=== PATIENT | male | born 1950 | race Caucasian/White ===

== ENCOUNTER → 2019-10-21 | Outpatient (CLI) | payer MEDICARE ==
--- NOTE | 2019-10-21 11:55 | MR ---
EXAMINATION TYPE: MR shoulder RT wo con DATE OF EXAM: 10/21/2019 COMPARISON: Right shoulder x-ray October 06, 2019 HISTORY: Right shoulder pain per order. Pain X 3 years, decreased ROM with difficulty raising overhea d per patient. TECHNIQUE: Multiplanar, multisequence imaging of the right shoulder is performed without contrast. FINDINGS: Rotator Cuff: Complete full-thickness retracted tear of the supraspinatus tendon to the level of the acromioclavicular joint coronal image 13 . Near-complete full-thickness retracted tear of the infrasp inatus tendon coronal image 17 less than 1 cm from attachment. A few fibers remain present. Intact goncalves bscapularis tendon. Rotator cuff muscle bulk fairly well maintained. Acromioclavicular Joint: Moderate to severe narrowing and capsular hypertrophy with loss of underlyin g fat plane. Mild spurring. Glenohumeral Joint: Moderate to large joint effusion. [id number] narrowing. No significant spur ring. Labrum: The superior labrum shows some increased signal consistent with degenerative tear coronal ted ge 13. Biceps Tendon: The long head of biceps is in normal location within bicipital groove. Bone marrow signal: Overall heterogeneity. No suspicious edema. Other: No additional significant abnormality is appreciated. IMPRESSION: Full-thickness retracted tear of the supraspinatus tendon. Near full-thickness retracted tear of the infraspinatus tendon.
== END | disposition home or self-care (01) ==
LOC: RADMRIMAIN 11:10
PROVIDERS: ATTEND Orthopaedic Surgery
DX: M75.121 Complete rotator cuff tear or rupture of right shoulder, not specified as traumatic (principal)

== ENCOUNTER → 2019-12-29 | Outpatient (CLI) | payer MEDICARE ==
[2019-12-29 08:28] VITALS: BP 157/89; PULSE 63; RESP 16; TEMP 98.1
--- NOTE | 2019-12-29 08:43 | P.PAINCN ---
History of Present Illness - Reason for Consult Consult date: 12/29/19 - History of Present Illness This is a 69-year-old patient referred by a neurologist at [place] with a chief complaint of chronic pain in the low back and pain from the knees down to the feet. These of the pain started 10-15 years ago. There was no inciting incident. Overall he has no back pain and his pain is worse from his knees all the way to his feet circumferentially. The pain is described as stabbing and at times feels hot and cold at the same time. He says his legs feel very heavy and sometimes he has difficulty raising his legs. He does say in general he does not have much weakness. The only alleviating factors currently are his pramiprexole which he takes for restless leg syndrome. As rating factors or any form of physical activity. Pain is worse in the evening. Currently pain is 2 out of 10, at worse 8 out of 10, at its best 2 out of 10. In terms of management, patient has attempted gabapentin 300 mg 1-2x a day and motrin 800 mg TID. He had a laminectomy in June of [address] Burks which did help him his back pain but not his leg pain He is unsure what levels this was done. He also had ankle brachial index and tests done in his bilateral lower extremities which were normal. He has mentioned that he had injections in the past which sound like epidurals possibly radiofrequency ablations of the facet joints. He said these procedures were helpful specifically the epidurals, even noted that a shoulder injection in the past help with his leg pain. He does mention that he had bad reactions to Versed and fentanyl in the past and he would be doing the injections without receiving any sedation Patient denies adverse drug effects from medications. Patient also denies new- onset weakness, bowel/bladder incontinence, or any other signs or symptoms of cauda equina syndrome. There are no signs of acute intoxication, and no indications of medication diversion or overuse. In addition to above, 13-point review of systems is also negative for chest pain, shortness of breath, changes in vision, changes in hearing, new onset weakness, abdominal pain, diarrhea, extreme fatigue, malaise, fever, skin changes, homicidal or suicidal ideation, or bowel or bladder incontinence. Physical exam: Vital Signs: Reviewed in EMR GENERAL: Well appearing, in no acute distress PSYCH: Mood and affect is appropriate. Awake, alert, and oriented SKIN: Skin color, texture, turgor normal, no rashes or lesions HEENT: Normocephalic, atraumatic. EOM intact CV: No pedal edema RESP: Respirations are unlabored, no audible wheezing GI: Abdomen non-distended MUSCULOSKELETAL: Bilateral upper and lower extremity strength is normal and symmetric. No atrophy or tone abnormalities are noted. Lumbar spine: Straight leg raising in the sitting position is negative for radicular pain. No pain to palpation over the lumbar spine and paraspinous muscles. Negative for pain with facet loading and back extension/rotation. Normal range of motion without pain reproduction Buttocks: No pain to palpation over the PSIS, Alonzo test is negative Extremities: Peripheral joint ROM is full and pain free without obvious instability or laxity in all four extremities. No edema or skin discolorations noted. Gait: Gait is normal NEUR: Bilateral upper and lower extremity coordination and muscle stretch reflexes are physiologic and symmetric. Negative clonus. No loss of sensation is noted. Cranial nerves are grossly intact. Imaging: Shoulder MRI 10/2019 Full-thickness retracted tear of the supraspinatus tendon. Near full-thickness retracted tear of the infraspinatus tendon. Acromial clavicular joint: Moderate to severe narrowing and capsular hypertrophy with loss of underlying fat plane. Glenohumeral joint: Moderate to large joint effusion. No significant spurring. Labrum: Superior labrum shows some increased signal consistent with degenerative tear. Lumbar MRI T12 to L3: Mild bilateral neural foraminal and central canal encroachment from spondylosis and epidural pole lipomatosis mainly. L3-L4: Moderate bilateral neural foraminal and relatively mild central canal encroachment from a circumferential disc spur complex and hypertrophic facet arthropathy L4-L5: Severe bilateral neural foraminal and central canal encroachment from a circumferential disc spur complex with a central component, ligamentum flavum thickening, and hypertrophic facet arthropathy. L5-S1: Moderate bilateral neural foraminal and central canal encroachment from spondylosis. Assessment: 1. Bilateral lower extremity neuropathy Plan: 1. Explanation: Diagnoses, prognoses, and multiple treatment options including but not limited to physical therapy, interventional therapies, medication management and surgery were discussed with the patient and all questions were answered to the patient's satisfaction. 2. Investigations: This point I am not sure if his pain is coming from isolated nerve pain in his lower extremities versus his back. Order a lumbar MRI without contrast as well as an EMG of the bilateral lower extremities to assess if his pain in his legs is coming from his back versus peripheral neuropathy versus restless leg syndrome 3. Counseling: The patient was counseled for 3 minutes on SMOKING CESSATION, BODY MASS INDEX, EXERCISE. Specifically, the patient was instructed regarding the importance of smoking cessation, weight control, and exercise in the context of both chronic pain and overall health. 4. Procedures: Consider epidurals in the future. Would only consider after reviewing MRI and EMG 5. Consultations: None 6. Medications: Can uptitrate his gabapentin in the future if imaging does not show an injection target. He does mention he is on higher doses in the past and this made him feel very mentally clouded, however does not sound like he was up titrated appropriately and was given medication 3 times a day 7. Disposition: After MRI and EMG to discuss possible injection versus medication management Past Medical History Past Medical History: Cancer, Osteoarthritis (OA), Sleep Apnea/CPAP/BIPAP, Thyroid Disorder Additional Past Medical History / Comment(s): burning & pain in legs, uses CPAP, hx. prostate cancer 2007, restless leg syndrome-causes issues when first gets up, trips alot until "legs get going" History of Any Multi-Drug Resistant Organisms: None Reported Past Surgical History: Back Surgery, Prostate Surgery Additional Past Surgical History / Comment(s): prostatectomy Past Anesthesia/Blood Transfusion Reactions: No Reported Reaction Smoking Status: Never smoker Medications and Allergies Home Medications Medication Instructions Recorded Confirmed Type Gabapentin [Neurontin] 300 mg PO HS 12/25/19 12/25/19 History Levothyroxine Sodium [Synthroid] 150 mcg PO DAILY 12/25/19 12/25/19 History Loratadine [Claritin] 10 mg PO DAILY 12/25/19 12/25/19 History Pramipexole [Mirapex] 0.5 mg PO TID PRN 12/25/19 12/25/19 History Allergies Allergy/AdvReac Type Severity Reaction Status Date / Time Penicillins Allergy Unknown Verified 12/25/19 09:19 Childhood fentanyl AdvReac BP & heart Verified 12/25/19 09:19 rate dropped PQRS Measure Charge Sheet PQRS Narrative: Pain Intensity [Bilateral 5 Lower Leg] Scale Used Numeric (1 - 10) Home Medications: Ambulatory Orders Gabapentin [Neurontin] 300 mg PO HS 12/25/19 Levothyroxine Sodium [Synthroid] 150 mcg PO DAILY 12/25/19 Loratadine [Claritin] 10 mg PO DAILY 12/25/19 Pramipexole [Mirapex] 0.5 mg PO TID PRN 12/25/19
== END | disposition home or self-care (01) ==
LOC: PNWHC3 07:41
PROVIDERS: ATTEND Anesthesiology
DX: G62.9 Polyneuropathy, unspecified (principal); G47.33 Obstructive sleep apnea (adult) (pediatric); M19.90 Unspecified osteoarthritis, unspecified site; E07.9 Disorder of thyroid, unspecified; Z99.89 Dependence on other enabling machines and devices; Z79.899 Other long term (current) drug therapy; Z79.890 Hormone replacement therapy; Z88.0 Allergy status to penicillin; Z88.5 Allergy status to narcotic agent
CPT/HCPCS: 99211

== ENCOUNTER → 2020-01-21 | Outpatient (CLI) | payer MEDICARE ==
--- NOTE | 2020-01-21 16:35 | MR ---
EXAMINATION TYPE: MR lumbar spine wo/w con DATE OF EXAM: 01/21/2020 COMPARISON: NONE HISTORY: 69-year-old male G57.90 Low back pain into lower extremities Technique: Multiplanar, multisequence images of the lumbar spine were obtained before and after admin istration of 11 mL intravenous Gadavist gadolinium contrast. FINDINGS: L4 and L5 laminectomy change. Corresponding susceptibility artifact in the posterior midline soft tis sues. There is enhancing granulation tissue within the laminectomy bed. No abnormal enhancement seen extending into the spinal canal. Vertebral body heights are preserved. Degenerative grade 1 anterolisthesis at L4-L5. Mild to moderate multilevel degenerative disc disease with desiccated and bulging discs. Enhancing annular fissure present posteriorly at L4-L5. Additional intraforaminal annular fissure on the right at L5-S1. Advanced hypertrophic facet arthropathy throughout. Conus medullaris is normal. Multiple parapelvic cysts within the kidneys. Heterogeneous marrow signal without suspicious bone marrow placement. The T12-L1, diffuse disc bulge with prominent dorsal epidural fat and facet arthropathy. There is mil d spinal canal stenosis with minimal inferior foraminal narrowing on both sides. At L1-L2, diffuse disc bulge with ligamentum flavum thickening and prominent dorsal epidural fat. Add itional facet arthropathy. Changes result in mild spinal canal stenosis. Additional moderate left and mild right neuroforaminal stenosis. At L2-L3, diffuse disc bulge with ligamentum flavum thickening and facet arthropathy. Prominent dorsa l epidural fat. Minimal narrowing of the spinal canal. Mild to moderate bilateral neural foraminal st enosis. At L3-L4, diffuse disc bulge with hypertrophic facet arthropathy. No significant spinal canal stenosi s. There is moderate right greater than left neuroforaminal stenosis. At L4-L5, diffuse disc bulge with posterior annular fissure. Hypertrophic facet arthropathy with grad e 1 anterolisthesis. There is laminectomy with dorsal decompression of the spinal canal. Disc materia l closely approaches and may abut the bilateral traversing L5 nerve roots. In addition, there is mode rate to severe bilateral neural foraminal stenosis. At L5-S1, diffuse disc bulge with hypertrophic facet arthropathy. No spinal canal stenosis. There is moderate bilateral neural foraminal stenosis. There seems to be a right intraforaminal annular fissur e at this level and there may be abutment of the exiting right L5 nerve root. IMPRESSION: 1. Prior L4 and L5 laminectomy change. There is surgical signal artifact along with enhancing granula tion tissue within the laminectomy bed. No suspicious epidural or perineural enhancement seen. 2. Mild to moderate multilevel degenerative disc disease. Multilevel hypertrophic facet arthropathy a nd ligamentum flavum thickening. Some levels of prominent dorsal epidural fat in the upper lumbar spi ne. Degenerative grade 1 anterolisthesis at L4-L5. 3. Changes result in mild overall narrowing of the spinal canal at T12-L1 and L1-L2. Minimal narrowin g at L2-L3. No jair canal compromise. 4. Posterior bulging disc at L4-L5 contains an annular fissure. Disc material closely approaches and may abut the bilateral traversing L5 nerve roots here. Moderate to severe bilateral neuroforaminal st enosis at this level. 5. Moderate bilateral neuroforaminal stenosis at L5-S1. In addition, there is a right intraforaminal annular fissure at this level that may abut the exiting right L5 nerve root. 6. Additional variable neuroforaminal stenoses as outlined above.
== END | disposition home or self-care (01) ==
LOC: RADMRIMAIN 07:34
PROVIDERS: ATTEND Anesthesiology
DX: M48.061 Spinal stenosis, lumbar region without neurogenic claudication (principal); M51.36 Other intervertebral disc degeneration, lumbar region; M51.26 Other intervertebral disc displacement, lumbar region; M43.16 Spondylolisthesis, lumbar region; Z98.1 Arthrodesis status
CPT/HCPCS: 72158; A9585

== ENCOUNTER → 2020-01-26 | Outpatient (CLI) | payer MEDICARE ==
[2020-01-26 09:18] VITALS: BP 152/85; RESP 18; TEMP 97.9
--- NOTE | 2020-01-26 09:37 | P.PN ---
Subjective Progress Note Date: 01/26/20 This is a 69-year-old gentleman with history of pain and heaviness in both legs from the knee level down to the feet. The patient had an EMG on the lower extremities which showed normal results with no neuropathy . His lumbar spine MRI showed severe neural foraminal stenosis at the L4 5 level with disc bulging and annular fissure. The patient denies any bowel or bladder dysfunction. He had a referral from a neurologist who wanted us to try epidural injection of steroids to see if this would help his pain. Patient denies new-onset weakness, bowel/bladder incontinence, or any other signs or symptoms of cauda equina syndrome. There are no signs of acute into xication, and no indications of medication diversion or overuse. In addition to above, 13-point review of systems is also negative for chest pain, shortness of breath, changes in vision, changes in hearing, new onset weakness, abdominal pain, diarrhea, extreme fatigue, malaise, fever, skin changes, homicidal or suicidal ideation, or bowel or bladder incontinence. Vital Signs: Reviewed in EMR Gen: AAOx3, NAD HEENT: PERRLA,hearing grossly normal Pulm: resp unlabored Neck: supple, trachea midline Neuro exam of the lower extremities: Normal and symmetrical knee reflexes bilaterally, absent ankles bilaterally. Normal muscle strength bilaterally and symmetrically in the lower extremities. Straight leg raising test: Negative bilaterally Tenderness in the paravertebral musculature: None A 2 inch well-healed scar in his lumbar spine from his previous back surgery Neuro: CN II-XII grossly intact, Imaging: Reviewed in EMR/chart Assessment: Lumbar neuro foraminal stenosis Plan: 1. Explanation: Opioid and psychological risk scores were reviewed. Diagnoses, prognoses, and multiple treatment options including but not limited to physical therapy, interventional therapies, adjuvant medical therapies, narcotic medication therapies, and surgery were discussed with the patient and all questions were answered to the patient's satisfaction. 2. Opioid agreement: Signed with the patient and the patient is warned not to use opioids while driving or before driving and not to combine opioids with benzodiazepines or alcohol. 3. Counseling: The patient was counseled extensively on SMOKING CESSATION, BODY MASS INDEX, EXERCISE. Specifically, the patient was instructed regarding the importance of smoking cessation, obesity, and exercise in the context of both chronic pain and overall health. 4. Procedures: Schedule for caudal epidural steroid injection with lysis of adhesions. Hopefully we can get the catheter up to the L4 5 level 5. Consultations: None 6. Investigations: None 7. Medications: Continue Neurontin. The patient takes one pill of Neurontin at night because it does cause sleepiness and during the day. I might need to increase the dose gradually up. 8. Disposition: Return to the above-mentioned procedure as soon as possible 9. Maps were reviewed and were appropriate. Objective - Vital Signs Vital signs: Vital Signs Temp 97.9 F 01/26/20 09:12 Pulse Resp 18 01/26/20 09:12 BP 152/85 01/26/20 09:12 Pulse Ox 98 01/26/20 09:12
== END | disposition home or self-care (01) ==
LOC: PNWHC3 09:00
PROVIDERS: ATTEND Anesthesiology
DX: M48.061 Spinal stenosis, lumbar region without neurogenic claudication (principal)
CPT/HCPCS: 99211

== ENCOUNTER → 2020-02-20 | Day surgery (SDC) | payer MEDICARE ==
[2020-02-18 14:40] VITALS: BMI 37.2
[~2020-02-20] MED LIST: IOPAMIDOL M200 10 ML VIAL ONE; LACTATED RINGERS 1,000 ML IV SCH; ROPIVACAINE 5MG/ML 20ML VIAL ONE; TRIAMCINOLONE ACETONIDE 40 MG/ML 1 ML VIAL ONE
[2020-02-20 12:42] VITALS: RESP 16; TEMP 98.2
--- NOTE | 2020-02-20 13:31 | P.PCN ---
Date of Procedure: 02/20/20 Anesthesia: local Surgeon: Brown Borjas Pathology: none sent Condition: stable Disposition: PACU Description of Procedure: PREOPERATIVE DIAGNOSIS: Lumbar post laminectomy syndrome. POSTOPERATIVE DIAGNOSIS: Lumbar post laminectomy syndrome. PROCEDURE: 1. Caudal epidural steroid injection under fluoroscopic guidance. 2. Caudal epidurogram. ANESTHESIA: Local only with 1% lidocaine EBL: Negligible PROCEDURE DESCRIPTION: The patient was seen and identified in the preoperative area. Risks, benefits, complications, and alternatives were discussed with the patient. The patient agreed to proceed with the procedure and signed the consent. IV was started, and vital signs were stable. Patient was taken to the OR and time out was completed. The patient was placed in the prone position on procedure table and a pillow was placed under the abdomen to reduce lumbar lordosis. The lumbosacral area was prepped and draped in the usual sterile fashion. Critical pause was taken. Vital signs were closely monitored during the procedure. Using lateral fluoroscopy the anterior-posterior plates of the sacrum were identified and the skin and deeper tissues corresponding into sacrococcygeal ligament were anesthetized using approximately 3 mL of 1% lidocaine. Then under fluoroscopy, a 3-1/2-inch 20-gauge Tuohy epidural needle/22-guage 3-1/2 -inch spinal needle was guided through the sacrococcygeal ligament, and into the epidural space. After negative aspiration, a 1 mL of omnipaque-300 contrast dye was injected with excellent epidurogram. Again after negative aspiration for CS F, blood, and with no paresthesias, Kenalog 100 mg,2ml of 0.25% preservative free Marcaine with 7ml of preservative free normal saline(total of 10ml)solution was injected with washout of epidurogram. Needle was withdrawn intact. Skin was cleansed, and bandage was applied. A copy of needle placement was saved to the C-arm machine in the radiology department. COMPLICATIONS: None. DISPOSITION / PLANS: The patient was placed in a supine position and transferred to the recovery area in a stable condition for observation and was discharged from the recovery room after meeting discharge criteria. Home discharge instructions given to the patient by the staff. The patient was reexamined prior to discharge. The patient will schedule a follow up in the clinic in 2-4 weeks.
[2020-02-20 13:53] VITALS: BP 164/94; PULSE 68
--- NOTE | 2020-02-20 14:56 | FL ---
Fluoroscopy INDICATION: Pain FINDINGS: Fluoroscopy time: 20 seconds. Images obtained: 3. IMPRESSIONS: 1. Documentation of fluoroscopy.
== END ==
LOC: ORPAIN 12:23
PROVIDERS: ATTEND Anesthesiology
DX: M96.1 Postlaminectomy syndrome, not elsewhere classified (principal); E07.9 Disorder of thyroid, unspecified; Z88.0 Allergy status to penicillin; Z88.5 Allergy status to narcotic agent; Z88.8 Allergy status to other drugs, medicaments and biological substances; Z79.899 Other long term (current) drug therapy
CPT/HCPCS: 62323; J3301; Q9966; J2795

== ENCOUNTER → 2020-06-21 | Outpatient (CLI) | payer MEDICARE ==
[2020-06-21 09:05] VITALS: BP 146/96; PULSE 71; RESP 18; TEMP 97.6
--- NOTE | 2020-06-21 10:34 | P.PN ---
Subjective Progress Note Date: 06/21/20 Edward is a 70-year-old gentleman who presents today with a chief complaint of low back pain and lower extremity pain. He does describes pain that is worse with walking. He describes numbness and tingling shooting pain down the leg which is worse with any activity. His pains were better with the previous caudal injection. He reports he had greater than 3 months relief from the injection but the pain is back now. He's had previous injections which offered longer term relief. He denies any bowel or bladder incontinence. His pain is described as a VAS of 6 out of 10 today. Pain is better with rest. He's having difficulty exercising secondary to his pain. Review of Systems: Denies any New chest pain, short of breath, Nausea/vomitting, abdominal pain, bowel or bladder incontinence, or any overt new neurologic symptoms in the upper or lower extremities outside of what is noted in the HPI Objective - Vital Signs Vital signs: Vital Signs Temp 97.6 F 06/21/20 08:59 Pulse 71 06/21/20 08:59 Resp 18 06/21/20 08:59 BP 146/96 06/21/20 08:59 Pulse Ox 99 06/21/20 08:59 - Exam General: Awake and alert oriented 3 no distress Respiratory exam: No audible wheezing no accessory muscle usage Cardiovascular exam: regular rate, palpable bilateral pulses, no lower extremity edema Abdominal exam: On distended obese midline Cervical spine: Normal alignment, Spurling's negative, facet loading negative, Consumer Relations Complaint Clerk strength is 5/5, muhammad negative Lumbar spine: Loss of lumbar lordosis, normal alignment, tender to palpation over bilateral paraspinal muscles, facet loading is positive bilaterally. Straight leg raise is positive bilaterally. There is evidence of quadriceps and hamstring weakness bilaterally. EHL strength is normal Sacroiliac joints: Nontender to palpation, YULI is negative, Gaenselon negative Neuro exam: Normal sensation in bilateral upper extremities, deep tendon reflexes are 2+ bilateral upper extremities. Normal sensation in bilateral lower extremities. 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 I discussed that having a transforaminal epidural injection may be of better benefit to target the MRI's findings. The transfemoral epidural may target his symptoms a little bit better as well. We'll schedule him for a bilateral L4-L5 transforaminal epidural steroid injection under fluoroscopy. I have spent 26 minutes on patient care today. The time was used to review the medical records including relevant urine studies and Prescription history (MAPs), review of the available imaging, evaluation and examination of the patient, coordination of care with the medical staff and if applicable referring physicians, as well as creation of the medical record.
== END ==
LOC: PNWHC3 08:46
PROVIDERS: ATTEND Hospitalist
DX: M47.26 Other spondylosis with radiculopathy, lumbar region (principal); M48.062 Spinal stenosis, lumbar region with neurogenic claudication
CPT/HCPCS: 99211

== ENCOUNTER 2020-07-01 13:09 | Day surgery (SDC) | payer MEDICARE ==
[2020-06-25 14:56] VITALS: BMI 36.1
[~2020-07-01 13:09] MED LIST changes: -IOPAMIDOL M200 10 ML VIAL ONE; -ROPIVACAINE 5MG/ML 20ML VIAL ONE; -TRIAMCINOLONE ACETONIDE 40 MG/ML 1 ML VIAL ONE
[2020-07-01 13:53] VITALS: RESP 16; TEMP 98.4
[2020-07-01] MEDS ORDERED: DEXAMETHASONE SOD PHOSPHATE 10 MG/ML 1 ML VIAL ONE (14:35)
[2020-07-01] MEDS ORDERED: IOPAMIDOL M200 10 ML VIAL ONE (14:35)
[2020-07-01] MEDS ORDERED: LIDOCAINE 1% INJ 10MG/ML (20 ML MDV) ONE (14:35)
--- NOTE | 2020-07-01 14:59 | P.PCN ---
Date of Procedure: 07/01/20 Surgeon: Brown Borjas Pathology: none sent Condition: stable Disposition: PACU Description of Procedure: PREOPERATIVE DIAGNOSIS: Lumbar radiculopathy , postlaminectomy pain syndrome POSTOPERATIVE DIAGNOSIS: Same as above PROCEDURE 1. Transforaminal epidural steroid injection under fluoroscopic guidance at L4-5 ,bilateral 2. Lumbar epidurogram. SURGEON: Brown Borjas MD ANESTHESIA: Local only with 1% lidocaine EBL: Minimal PROCEDURE INDICATION: The patient with low back pain and radiculopathy symptoms unresponsive to conservative treatment. PROCEDURE DESCRIPTION / TECHNIQUE: The patient was seen and identified in the preoperative area. Risks, benefits, complications, and alternatives were discussed with the patient. The patient agreed to proceed with the procedure and signed the consent. IV was started, and vital signs were stable. Patient was taken to the OR and time out was completed. The patient was placed in the prone position on procedure table and a pillow was placed under the abdomen to reduce lumbar lordosis. The lumbosacral area was prepped and draped in the usual sterile fashion. Critical pause was taken. Vital signs were closely monitored during the procedure. Conscious sedation was used during the procedure to decrease patients anxiety. The vertebral body of the lumbar vertebra L4 was squared off by tilting the C-arm cephalad then the C-arm was tilted to the right oblique position and the target point was at the 6 o'clock position of the pedicle of then skin and deeper tissues were localized with 1% lidocaine. Subsequently, a 22-gauge 3.5-inch spinal needle was advanced under a tunneled view fluoroscopic guidance just underneath the chin of the Elmer dog at the . Under lateral fluoroscopy, the needle was then advanced to the middle of the upper one third of the foramen between( L4-5). After negative aspiration of CSF and blood and with no paresthesias, 1 mL of omnipaque contrast dye was injected excellent epidurogram and outlining of the L4 nerve root was identified. Subsequently, 2 mL of block solution containing 7.5 mg of Decadron and 1 mL of Lidocaine 1% PF was injected. Needle was removed intact . The procedure was repeated in the same manner on the left side. At the end of the procedure, skin was cleansed, and bandages were applied. COMPLICATIONS: None COMMENTS: DISPOSITION / PLANS: The patient was placed in a supine position and transferred to the recovery area in a stable condition for observation. There was no evidence of lower extremity motor or sensory deficit after the procedure. Patient was discharged from the recovery room after meeting discharge criteria. Home discharge instructions were given to the patient by the staff.
[2020-07-01 15:24] VITALS: BP 157/93; PULSE 75
--- NOTE | 2020-07-01 15:59 | FL ---
Fluoroscopy HISTORY: Pain 33 seconds fluoroscopy time supplied to the referring clinician. 6 intraoperative C-arm images docum ent the procedure. See dictated report from anesthesia.
== END 2020-07-01 15:32 | disposition home or self-care (01) ==
LOC: ORPAIN 13:09
PROVIDERS: ATTEND Anesthesiology
DX: M54.16 Radiculopathy, lumbar region (principal); M96.1 Postlaminectomy syndrome, not elsewhere classified; Y83.8 Other surgical procedures as the cause of abnormal reaction of the patient, or of later complication, without mention of misadventure at the time of the procedure; Z88.0 Allergy status to penicillin; G25.81 Restless legs syndrome
CPT/HCPCS: 64483; J1100; J2001; Q9966

== ENCOUNTER → 2020-08-11 | Outpatient (CLI) | payer MEDICARE ==
[2020-08-11 09:25] VITALS: BP 130/80; PULSE 86; RESP 16; TEMP 97.9
--- NOTE | 2020-08-11 09:51 | P.PN ---
Subjective Progress Note Date: 08/11/20 This is a follow-up visit for this 71 years old male with a chronic history of severe low back pain with radiation to the lower extremity associated with numbness and tingling sensation, patient had lumbar laminectomy surgery done 3 years ago and had good results until a few months ago when he started having the symptoms, and is constant interfere with the quality of life, patient feels some weakness in his lower extremity and he has some numbness and tingling sensation, mostly with done caudal epidural steroid injection he had some benefit for a few weeks, and recently we did transforaminal epidural steroid injection at L4 5 patient had no benefit from it, he continued to have severe pain interfering with his ability to do activities of daily livings, he tried home exercise without any benefit, and is currently taking ibuprofen and Neurontin and continued to have this in symptoms Objective - Vital Signs Vital signs: Vital Signs Temp 97.9 F 08/11/20 09:23 Pulse 86 08/11/20 09:23 Resp 16 08/11/20 09:23 BP 130/80 08/11/20 09:23 Pulse Ox 97 08/11/20 09:23 - Exam Physical Examinations : -Constitutiona : Cooperative , not in acute distress . -HEENT : nech : supple , no Lymphadenopathy , normal thyroid size . : eyes : no ptosis , no icterus, no photophobia . - neurologic : Cranial nerve II to XII intact , no focal neurological deffecit . -psychatric : alert , oriented X 3 , appropriate affect , intact judgment and insight . -Lymphatic : no Lymphadenopathy . - musculoskeltal : Lumber spine moter stegnth lower extremities ,thigh and legs 5/5 Right side , 5/5 Left side deep tendon reflexes : normal Knee Jerk , normal ankle Jerk lumber facet Loading Test = negative bilaterally Range of motion of the lumbar spine Flexion 30 degrees, extension 10 degrees strait leg raising test = positive at 30 degree Fabere test= positive Right , and positive LT . tenderness over the Sacroiliac joint on the Right , and Left sides Lumbar MRI T12 to L3: Mild bilateral neural foraminal and central canal encroachment from spondylosis and epidural pole lipomatosis mainly. L3-L4: Moderate bilateral neural foraminal and relatively mild central canal encroachment from a circumferential disc spur complex and hypertrophic facet arthropathy L4-L5: Severe bilateral neural foraminal and central canal encroachment from a circumferential disc spur complex with a central component, ligamentum flavum thickening, and hypertrophic facet arthropathy. L5-S1: Moderate bilateral neural foraminal and central canal encroachment from spondylosis. Assessment and Plan Plan: Assessment and plan=1-postlaminectomy pain syndrome lumbar area. 2-lumbar foraminal stenosis. 3-lumbar radiculopathy. 4-lumbar spondylosis. he could benefit from caudal epidural steroid injection with lysis of epidural adhesions under fluoroscopy guidance. - PQRS measures = - Patient's medications are documented in the chart. -Tobacco use is negative and counseling.Given. -Patient's has not received pneumococcal vaccine. -Advanced care planning discussed, patient not eligible. -Opiate contract not signed. -Pain positive and follow-up visit/procedure is scheduled. -Patient's blood pressure measured [ 130/80 ] , and documented in the record ,and patient will follow up with the primary care. -Patient's weight was measured and body mass index [ 35.9 ] above the normal limits and counseling was done. and patient instructed to follow-up with the primary care physician. -Patient was not identified as an unhealthy alcohol user Time with Patient: Less than 30
== END ==
LOC: PNWHC3 08:52
PROVIDERS: ATTEND Specialist
DX: M47.26 Other spondylosis with radiculopathy, lumbar region (principal); M48.061 Spinal stenosis, lumbar region without neurogenic claudication; M96.1 Postlaminectomy syndrome, not elsewhere classified; Z88.0 Allergy status to penicillin; Z88.4 Allergy status to anesthetic agent; Z88.6 Allergy status to analgesic agent
CPT/HCPCS: 99211

== ENCOUNTER 2020-10-19 07:28 | Day surgery (SDC) | payer MEDICARE ==
[2020-10-08 11:39] VITALS: BMI 35.9
[2020-10-19 07:48] VITALS: RESP 16; TEMP 98
[2020-10-19] MEDS ORDERED: methylPREDNISolone ACETATE 40 MG/ML 1 ML VIAL ONE (08:16)
[2020-10-19] MEDS ORDERED: IOPAMIDOL M200 10 ML VIAL ONE (08:16)
[2020-10-19] MEDS ORDERED: IBUPROFEN 800 MG TAB PO PRN (08:33)
[2020-10-19] MEDS ORDERED: PRAMIPEXOLE 0.5 MG TAB PO PRN (08:33)
--- NOTE | 2020-10-19 08:37 | P.PCN ---
Date of Procedure: 10/19/20 Operative Findings: PREOPERATIVE DIAGNOSIS: Lumbar spine stenosis and lumbar radiculopathy. POSTOPERATIVE DIAGNOSIS: Lumbar spine stenosis, and lumbar radiculopathy. PROCEDURE: 1. Caudal epidural steroid injection under fluoroscopic guidance. 2. Caudal epidurogram. SURGEON: Delbert Vale ANESTHESIA: Local with 1% lidocaine; IV sedation: none EBL: None. Specimens removed: None Complications: None Fluoroscopic image: saved to electronic medical records PROCEDURE INDICATION: Patient had a history of lumbar spinal canal stenosis, failed with conservative therapy. pain radiating distally returns for caudal epidural steroid injection. PROCEDURE DESCRIPTION: The patient was seen and identified in the preoperative area. Risks, benefits, complications, and alternatives were discussed with the patient. The patient agreed to proceed with the procedure and signed the consen t. , and vital signs were stable. Patient was taken to the OR and time out was completed. The patient was placed in the prone position on procedure table and a pillow was placed under the abdomen to reduce lumbar lordosis. The lumbosacral area was prepped and draped in the usual sterile fashion. Critical pause was taken. Vital signs were closely monitored during the procedure. Using lateral fluoroscopy the anterior-posterior plates of the sacrum were identified and the skin and deeper tissues corresponding into sacrococcygeal ligament were anesthetized using approximately 3 mL of 1% lidocaine. Then under fluoroscopy, a 3-1/2-inch 20-gauge Tuohy epidural needle was guided through the sacrococcygeal ligament, and into the epidural space. After negative aspiration, 2 mL of Isovue contrast dye was injected with epidurogram. Again after negative aspiration for CSF, blood, and with no paresthesias, Depo-Medrol 80mg, with 10ml of preservative free normal saline(total of 11ml) solution was injected with washout of epidurogram. Needle was withdrawn intact. Skin was cleansed, and bandage was applied. DISPOSITION / PLANS: The patient was placed in a supine position and transferred to the recovery area in a stable condition for observation and was discharged from the recovery room after meeting discharge criteria. Home discharge instructions given to the patient by the staff. The patient was reexamined prior to discharge. The patient will schedule a follow up in the clinic in 4 weeks.
[2020-10-19] MEDS ORDERED: LACTATED RINGERS 1,000 ML IV SCH (08:45)
[2020-10-19 08:46] VITALS: BP 135/89; PULSE 82
[2020-10-19] MEDS ORDERED: NON FORMULARY DRUG (Magnesium [Magnesium] 250 MG Tablet) PO SCH (09:00)
[2020-10-19] MEDS ORDERED: NON FORMULARY DRUG (Levothyroxine Sodium [Synthroid] 150 MCG Tablet) PO SCH (09:00)
[2020-10-19] MEDS ORDERED: APIXABAN 5 MG TAB PO SCH (09:00)
[2020-10-19] MEDS ORDERED: LORATADINE 10 MG TAB PO SCH (09:00)
--- NOTE | 2020-10-19 11:00 | FL ---
Fluoroscopy INDICATION: Pain FINDINGS: Fluoroscopy time: 6 seconds. Images obtained: 2. IMPRESSIONS: 1. Documentation of fluoroscopy.
[2020-10-19] MEDS ORDERED: GABAPENTIN 300 MG CAP PO SCH (21:00)
== END 2020-10-19 09:02 | disposition home or self-care (01) ==
LOC: ORPAIN 07:28
DX: M48.061 Spinal stenosis, lumbar region without neurogenic claudication (principal); M54.16 Radiculopathy, lumbar region
CPT/HCPCS: 62323; J1030; Q9966

== ENCOUNTER → 2020-11-15 | Outpatient (CLI) | payer MEDICARE ==
--- NOTE | 2020-11-15 10:11 | P.PAINPG ---
Subjective Progress Note Date: 11/15/20 Principal diagnosis: Lumbar back pain, leg pain Mr. Tello is a 70 -year-old pleasant male came to the [facility] pain clinic for postprocedure follow-up . Patient has ongoing pain for many years. Patient had a lumbar back surgery 3 years ago. Patient had caudal epidural 2 which helped tremendously in controlling his pain. Which also helped pain experiencing in his lower extremity. He had transforaminal epidural at L4-L5 which was not much helpful. Patient describes pain is aching, throbbing, constant type of pain. Pain is radiating to bilateral lower extremity, sometimes his feet feels like so heavy.. Patient rated pain levels are 6 out of 10 in severity. Sometimes he takes Motrin as needed for pain. Activities making pain worse. Medications, resting, intervention procedures helping in relieving patient's pain. Patient pain some days better than others. Overall activities decreased secondary to pain. Because of the pain sometimes patient is feeling lack of sleep, interest, and energy. Denied any bowel or bladder pr oblems at this time. Patient is using not using any for walking support. Patient denies any suicidal or homicidal ideations intent or plan. Patient denies any auditory or visual hallucinations. Patient denied any red flag symptoms related to pain. Objective - Exam General: Well-developed, well-nourished, no acute distress HEENT: Normocephalic, and atraumatic Neck: Supple, no neck swelling Psychiatric: Appropriate mood, and affect [employer]: No noticeable focal neurological deficits Musculoskeletal: Upper extremity: Normal strength, and range of motion. Sensation grossly intact Lower extremity: Normal strength, and decreased range of motion secondary to pain Lumbar spine: Paravertebral tenderness: positive Lumbar facet load test : positive Strait leg raising test: Negative Sacroiliac joint tenderness: Negative - Constitutional Constitutional Comment(s): 13 point review of symptoms negative except as mentioned in the history of present illness Assessment and Plan Assessment: Lumbar postlaminectomy syndrome Lumbar radiculopathy Lumbar spondylosis without myelopathy Plan: #1 psychological risk tools were reviewed. Diagnoses, prognosis, and multiple treatment options including but not limited to physical therapy, interventional therapy, adjunct medication therapy, complementary alternative medicine options, narcotic medication, and surgical options were discussed with the patient. And all questions were answered to the patient's satisfaction. #2 treatment plan agreement : Patient was thoroughly discussed regarding the treatment options, alternatives, and importance of exercises as tolerated. Patient clearly understood. #3 Patient was counseled on importance of regular exercise. Including lila chi, aerobic exercises as tolerated. Which helps for chronic pain, and overall well- being. Patient also counseled regarding importance of weight control role in chronic pain, and overall other health issues. By altering diet habits, minimizing sugar intake, & processed foods helps in minimizing Inflammation. #4 investigations: MAPS- reviewed , urine drug test- not done #5 diagnostic tests: None #6 consultation : None # 7 interventional procedures: Caudal epidural with RACZ catheter . Procedure, complications, alternatives discussed with the patient. #8 medications None from the pain clinic #9 morphine milligrams equivalents dose ( MME) per day: 0 from the pain clinic. # 10 TENS unit's, #11 disposition: scheduled to follow up with pain clinic in 4 weeks duration. Time with Patient: Less than 30 PQRS Measure Charge Sheet Measure #130: Documentation of Current Meds in Medical Chart: Patient's medications documented in chart Measure #226: Tobacco Use: Screen & Cessation Intervention: Pt not a tobacco user Measure #111: Pneumonia Vaccination: Pneumococcal vaccine administered or previously received Measure #47: Advance Care Plan: Advance care planning discussed & documented, plan or surrogate given Measure #412: Opioid Treatment Agreement: No documentation of signed opioid treatment agreement Measure #408: Opioid Therapy Follow-up Evaluation: Patient had NO f/u eval minimum every 3 months during opioid therapy Measure #317: Preventitive Care & Scrn High Bld Press & F/U: Pre-hypertensive or hypertensive BP documented, pt will f/u with PCP Measure #128: Body Mass Index (BMI) Screening & Follow-up: BMI documented ABOVE normal parameters - f/u documented Measure #131: Pain Assessment & Follow-up: Pain positive & plan documented Measure #431: Unhealthy Alcohol Use Preventative Care & Scrn: Patient not identified as an unhealthy alcohol user PQRS Narrative: Hx Alcohol Use (MH) Yes: SOCIAL Home Medications: Ambulatory Orders Gabapentin [Neurontin] 300 mg PO HS 12/25/19 Levothyroxine Sodium [Synthroid] 150 mcg PO DAILY 12/25/19 Loratadine [Claritin] 10 mg PO DAILY 12/25/19 Pramipexole [Mirapex] 0.5 mg PO TID PRN 12/25/19 Ibuprofen [Motrin Ib] 800 mg PO Q8H PRN 12/29/19 Magnesium 250 mg PO DAILY 07/01/20 Apixaban [Eliquis] 5 mg PO BID 10/08/20 Controlled Substance Measures - Controlled Substance Measures Is patient prescribed a controlled substance at discharge?: No
[2020-11-15 10:15] VITALS: BP 133/85; PULSE 89; RESP 18; TEMP 97.6
== END ==
LOC: PNWHC3 09:46
DX: M96.1 Postlaminectomy syndrome, not elsewhere classified (principal); M47.26 Other spondylosis with radiculopathy, lumbar region; Z88.0 Allergy status to penicillin; Z88.6 Allergy status to analgesic agent; Z88.4 Allergy status to anesthetic agent
CPT/HCPCS: 99211

== ENCOUNTER 2020-12-16 07:44 | Day surgery (SDC) | payer MEDICARE ==
[2020-12-14 12:15] VITALS: BMI 34.8
[2020-12-16 08:32] VITALS: RESP 16; TEMP 97.8
[2020-12-16] MEDS ORDERED: IOPAMIDOL M200 10 ML VIAL ONE (09:05)
[2020-12-16] MEDS ORDERED: ROPIVACAINE 5MG/ML 20ML VIAL ONE (09:05)
[2020-12-16] MEDS ORDERED: TRIAMCINOLONE ACETONIDE 40 MG/ML 1 ML VIAL ONE (09:05)
--- NOTE | 2020-12-16 09:24 | P.PCN ---
Date of Procedure: 12/16/20 Surgeon: Brown Borjas Pathology: none sent Condition: stable Disposition: PACU Description of Procedure: PREOP DIAGNOSIS: Lumbar postlaminectomy syndrome. POSTOP DIAGNOSIS: Lumbar postlaminectomy syndrome. PROCEDURE: Caudal epidural steroid injection with epidurolysis and epidurogram under fluoroscopic guidance ANESTHESIA: Local only with 1% lidocaine EBL: Minimal. PROCEDURE INDICATION: The patient with post-laminectomy syndrome with low back pain and radiculopathy radiating down in both legs, here for a caudal epidural steroid injection with epidurolysis. PROCEDURE DESCRIPTION: The patient was seen in the preoperative holding area consent was obtained then he was brought into the procedure room and placed in prone position. Skin was prepped with ChloraPrep and draped in a sterile bean er. Lidocaine 1% was used to numb the skin up at the target point that was chosen as follows: The lateral view of fluoroscopy was used to identify the sacral hiatus and then after localizing the skin with lidocaine 1% I used 18- gauge epidural needle with a plastic sheath to go through the sacral hiatus and into the sacral canal and then injected 1 mL of Omnipaque for verification of needle tip position. After that the metal core of the needle was taken out and the plastic sheath was kept in the sacral canal. Then Racz catheter was introduced through the plastic sheath and into the epidural space at the sacral canal using the AP view of fluoroscopy up to L5-S1 level then I injected 2 MLS of Omnipaque which showed spread in the epidural space and after few back and forth movements of the Racz catheter I injected 40 mg of Kenalog +2 MLS of Ropivacaine 0.5% +7 MLS of preservative-free normal saline to a total volume of 10 MLS in the epidural space. Patient tolerated procedure well. A copy of the needle placement x-ray was saved to the C-arm machine. COMPLICATIONS: None. DISPOSITION / PLANS: The patient was placed in a supine position and transferred to the recovery area in a stable condition for observation and was discharged from the recovery room after meeting discharge criteria. Home discharge instructions given to the patient by the staff. The patient was reexamined prior to discharge. The patient will schedule a follow up in the clinic in 2-4 weeks.
--- NOTE | 2020-12-16 09:40 | FL ---
EXAMINATION TYPE: FL guided pain mgmt statistic DATE OF EXAM: 12/16/2020 CLINICAL HISTORY: Low back and Sacral pain. TECHNIQUE: Fluoroscopy. COMPARISON: None. FINDINGS: Fluoroscopic guidance was provided during pain relief procedure performed by Dr. Borjas . A total of 10 seconds of fluoroscopic time was utilized during the procedure and 3 spot images are acquired. Images acquired shows needle localization from posterior-inferior approach to the sacrum a nd additional injection near lumbosacral junction. IMPRESSION: As Above.
[2020-12-16 09:42] VITALS: BP 152/90; PULSE 67
== END 2020-12-16 09:27 | disposition home or self-care (01) ==
LOC: ORPAIN 07:44
PROVIDERS: ATTEND Anesthesiology
DX: M96.1 Postlaminectomy syndrome, not elsewhere classified (principal); M53.3 Sacrococcygeal disorders, not elsewhere classified
CPT/HCPCS: 62323; 62264; J3301; Q9966; J2795; C1894

== ENCOUNTER → 2021-01-24 | Outpatient (CLI) | payer MEDICARE ==
[2021-01-24 10:21] VITALS: BP 161/80; PULSE 82; RESP 18; TEMP 97.7
--- NOTE | 2021-01-24 10:41 | P.PAINPG ---
Subjective Progress Note Date: 01/24/21 Principal diagnosis: Lumbar back pain Mr. Tello is a 70 -year-old pleasant male came to the [facility] pain clinic for postprocedure evaluation . Patient has ongoing pain for many years. Had a history of lumbar back surgery 3 years ago. Patient had caudal epidural steroid injection with lysis 2 with good pain relief for more than patient with 70% pain relief. Patient describes pain is aching, throbbing, constant type of pain. Pain is radiating to lower extremity sometimes. Patient rated pain levels are 7 out of 10 in severity. With the help of medications pain levels are 5-7 out of 10 in severity. Activities making pain worse. Medications, resting, intervention procedures, physical therapy helping in relieving patient's pain. Patient pain some days better than others. Overall activities decreased secondary to pain. Because of the pain sometimes patient is feeling lack of sleep, interest, and energy. Denied any side effects with the medications. Denied any bowel or bladder problems at this time. Patient is not using any walking aids for walking support. Patient denies any suicidal or homicidal ideations intent or plan. Patient denies any auditory or visual hallucinations. Patient denied any red flag symptoms related to pain. Objective - Vital Signs Vital signs: Vital Signs Temp 97.7 F 01/24/21 10:17 Pulse 82 01/24/21 10:17 Resp 18 01/24/21 10:17 BP 161/80 01/24/21 10:17 Pulse Ox 97 01/24/21 10:17 - Exam General: Well-developed, well-nourished, no acute distress HEENT: Normocephalic, and atraumatic Neck: Supple, no neck swelling Psychiatric: Appropriate mood, and affect STUNTMAN: No focal neurological deficits Musculoskeletal: Upper extremity: Normal strength, and range of motion. Sensation grossly intact Lower extremity: Normal strength, and decreased range of motion secondary to pain Lumbar spine: Paravertebral tenderness: positive Lumbar facet load test : positive SLR positive Sacroiliac joint tenderness: Positive Thigh thrust test: Positive SI joint compression test: Positive Fabere test: Positive - Constitutional Constitutional Comment(s): 13 point review of Systems , and symptoms negative for chest pain, shortness of breath, change in vision, change in weakness, abdominal pain, diarrhea, extreme fatigue, malaise, fever, skin changes, suicidal/homicidal ideas, bowel incontinence or bladder incontinence. Assessment and Plan Assessment: Lumbar postlaminectomy syndrome Lumbar radiculopathy Lumbar spondylosis without myelopathy Sacroiliac joint joint dysfunction Myofascial pain syndrome, and chronic pain syndrome Plan: #1 Diagnoses, prognosis, and multiple treatment options including but not limited to physical therapy, interventional therapy, adjunct medication therapy, narcotic medication, and surgical options were discussed with the patient. And all questions were answered to the patient's satisfaction. #2 treatment plan agreement : Patient was thoroughly discussed regarding the treatment options, alternatives, and importance of exercises as tolerated. Patient clearly understood. #3 Patient was counseled on importance of regular exercise. Including lila chi, aerobic exercises as tolerated. Which helps for chronic pain, and overall well- being. Patient also counseled regarding importance of weight control rolling chronic pain, and overall other health issues. By altering diet habits, minimizing sugar intake, and processed foods helps in minimizing Inflammation. Also discussed with the patient regarding intermittent fasting. #4 investigations: MAPS- reviewed , urine drug test- reviewed #5 diagnostic tests: None #6 consultation : None # 7 interventional procedures: Caudal epidural with Racz catheter #3 . Procedure, complications, alternatives discussed with the patient. #8 medications #1 Tylenol 500 mg by mouth every 12 that every 8 hours as needed, total dose not more than 2 g per day. long-term consequences discussed with the patient. Patient recommended to cont act the pain clinic if noticed any issues with given medications. #9 morphine milligrams equivalents dose ( MME) per da0 from the pain clinic #10 disposition: scheduled to follow up with pain clinic in 4 weeks duration. Time with Patient: Less than 30 PQRS Measure Charge Sheet Measure #130: Documentation of Current Meds in Medical Chart: Patient's medications documented in chart Measure #226: Tobacco Use: Screen & Cessation Intervention: Pt not a tobacco user Measure #111: Pneumonia Vaccination: Pneumococcal vaccine administered or previously received Measure #47: Advance Care Plan: Advance care planning discussed & documented, plan or surrogate given Measure #412: Opioid Treatment Agreement: No documentation of signed opioid treatment agreement Measure #408: Opioid Therapy Follow-up Evaluation: Patient had NO f/u eval minimum every 3 months during opioid therapy Measure #317: Preventitive Care & Scrn High Bld Press & F/U: Normal blood pressure, f/u not required Measure #128: Body Mass Index (BMI) Screening & Follow-up: BMI documented ABOVE normal parameters - f/u documented Measure #131: Pain Assessment & Follow-up: Pain positive & plan documented Measure #431: Unhealthy Alcohol Use Preventative Care & Scrn: Patient not identified as an unhealthy alcohol user Mode of Arrival: Ambulatory - Pain Location Bilateral Leg Non-Pharmacological Interventions: Home Exercise, Inactivity, Physical Therapy, Position/Reposition, Stretching Pharmacological Interventions: Epidural, PRN Medication PQRS Narrative: Blood Pressure 161/80 Pain Intensity [Bilateral Leg] 5 Scale Used Numeric (1 - 10) Hx Alcohol Use (MH) Yes: SOCIAL Home Medications: Ambulatory Orders Gabapentin [Neurontin] 300 mg PO HS 12/25/19 Levothyroxine Sodium [Synthroid] 150 mcg PO DAILY 12/25/19 Loratadine [Claritin] 10 mg PO DAILY 12/25/19 Pramipexole [Mirapex] 0.5 mg PO TID PRN 12/25/19 Ibuprofen [Motrin Ib] 800 mg PO Q8H PRN 12/29/19 Magnesium 250 mg PO DAILY 07/01/20 Apixaban [Eliquis] 5 mg PO BID 10/08/20 Controlled Substance Measures - Controlled Substance Measures Is patient prescribed a controlled substance at discharge?: No
== END ==
LOC: PNWHC3 09:25
DX: M96.1 Postlaminectomy syndrome, not elsewhere classified (principal); M47.26 Other spondylosis with radiculopathy, lumbar region; M53.3 Sacrococcygeal disorders, not elsewhere classified; M79.18 Myalgia, other site; G89.4 Chronic pain syndrome; Z88.0 Allergy status to penicillin; Z88.4 Allergy status to anesthetic agent
CPT/HCPCS: 99211

== ENCOUNTER 2021-03-03 06:33 | Day surgery (SDC) | payer MEDICARE ==
[2021-02-25 13:23] VITALS: BMI 34.0
[2021-03-03 06:56] VITALS: TEMP 97.2
[2021-03-03] MEDS ORDERED: methylPREDNISolone ACETATE 40 MG/ML 1 ML VIAL ONE (07:20)
[2021-03-03] MEDS ORDERED: IOPAMIDOL M200 10 ML VIAL ONE (07:20)
--- NOTE | 2021-03-03 07:36 | P.PCN ---
Date of Procedure: 03/03/21 Procedure(s) Performed: PREOPERATIVE DIAGNOSIS:1- Lumbar post laminectomy syndrome. 2-lumbar radic ulopathy. 3-lumbar spondylosis with lumbar facet arthropathy POSTOPERATIVE DIAGNOSIS: Same as pre -Op Diagnosis. PROCEDURE: 1. Caudal epidural steroid injection under fluoroscopic guidance. (Fluoroscopy images available in the radiology department ) 2. Caudal epidurogram ANESTHESIA: Local with 1% lidocaine; 5ml only EBL: None. PROCEDURE INDICATION: The patient with neuropathic pain radiating distally returns for caudal epidural steroid injection. PROCEDURE DESCRIPTION: The patient was seen and identified in the preoperative area. Risks, benefits, complications, and alternatives were discussed with the patient. The patient agreed to proceed with the procedure and signed the consent., and vital signs were stable. Patient was taken to the OR and time out was completed. The patient was placed in the prone position on procedure table and a pillow was placed under the abdomen to reduce lumbar lordosis. The lumbosacral area was prepped and draped in the usual sterile fashion. Critical pause was taken. Vital signs were closely monitored during the procedure. Using lateral fluoroscopy the anterior-posterior plates of the sacrum were identified and the skin and deeper tissues corresponding into sacrococcygeal ligament were anesthetized using approximately 3 mL of 1% lidocaine. Then under fluoroscopy, a 3-1/2-inch 20-gauge Tuohy epidural needle was guided through the sacrococcygeal ligament, and into the epidural space. After negative aspiration, a 2 mL of Isovue 200 contrast dye was injected with excellent epidurogram. Again after negative aspiration for CSF, blood, and with no paresthesias, then Depo-Medrol 60mg, 2ml of 1% preservative free Lidocaine with 7 ml of preservative free normal saline(total of 9 ml)solution was injected with washout of epidurogram. Needle was withdrawn intact. Skin was cleansed, and bandage was applied. COMPLICATIONS: None DISPOSITION / PLANS: The patient was placed in a supine position and transferred to the recovery area in a stable condition for observation and was discharged from the recovery room after meeting discharge criteria. Home discharge instructions given to the patient by the staff. The patient was reexamined prior to discharge. The patient will schedule a follow up in the clinic in 2-4 weeks. Elequis was held for more than 72 hours
--- NOTE | 2021-03-03 07:42 | FL ---
Fluoroscopy INDICATION: Pain FINDINGS: Fluoroscopy time: 2 seconds. Images obtained: 2. IMPRESSIONS: 1. Documentation of fluoroscopy.
[2021-03-03 07:46] VITALS: PULSE 63
[2021-03-03 07:52] VITALS: BP 144/77; RESP 18
== END 2021-03-03 08:00 | disposition home or self-care (01) ==
LOC: ORPAIN 06:33
PROVIDERS: ATTEND Specialist
DX: M96.1 Postlaminectomy syndrome, not elsewhere classified (principal); M47.26 Other spondylosis with radiculopathy, lumbar region; I25.10 Atherosclerotic heart disease of native coronary artery without angina pectoris; Z79.01 Long term (current) use of anticoagulants
CPT/HCPCS: 62323; J1030; Q9966

== ENCOUNTER → 2021-06-06 | Outpatient (CLI) | payer MEDICARE | LOC: PNWHC3 11:13 | PROVIDERS: ATTEND Anesthesiology | DX: M54.16 Radiculopathy, lumbar region (principal) | CPT/HCPCS: 99211 ==

== ENCOUNTER → 2021-07-28 | Outpatient (CLI) | payer MEDICARE ==
[2021-07-28 09:23] VITALS: BP 128/86; PULSE 96; RESP 18; TEMP 98
--- NOTE | 2021-07-28 09:25 | P.PAINPG ---
PQRS Measure Charge Sheet Comment: A 71 yr old male with a history of severe and chronic low back pain secondary to lumbar degenerative disc diseases and lumbar spondylosis with facet arthropathy presents today for evaluation status post caudal EDMUNDO w lysis. He states he experienced 95% pain relief status post procedure. Pain level is curr ently at 5/10 in intensity, burning pain that extends towards his feet BL. Pain is provoked by walking and activity for periods of 15 min or more. Pain is alleviated with medications (Motrin, muscle relaxers), PT in July 2020 which was ineffective, topicals, patches, sitting, laying supine and rest. Interventional pain procedures completed include Caudal EDMUNDO w lysis Patient is currently on Motrin OTC, anti spasmotics Patient denies any side effects of the medication(s), denies excessive drowsiness or sleepiness, denies suicidal ideation and reports that the current pain medication is helping to control the pain and improve activities of daily living. Patient denies any motor or sensory deficits. Patient denies any fever or night sweats, denies any change in the bowel movements or urination. Physical Examination: -Constitutional: Cooperative. Not in acute distress . -HEENT: Neck is supple. No lymphadenopathy. No thyromegaly. Normal thyroid size. Eyes: No ptosis , no icterus, no photophobia. ENT: No auditory deficits. Normal oropharynx. No Thrush. - Respiratory: Chest clear to auscultations bilaterally. No wheezing. No rhonchi. - Cardiovascular: Regular rate and rhythm. S1 / S2 , no S3 , no S4. - Gastrointestinal: Abdomen soft no tenderness. Bowel sounds positive in all four quadrants. No organomegaly. - Genitourinary: Deferred. - Neurologic: Cranial nerve II to XII intact. No focal neurological deficits. - Psychatric: Alert & oriented x 3. Matching mood & appropriate affect. Judgment and insight intact. - Lymphatic: No Lymphadenopathy. - Musculoskeletal: Cervical spine: Muscle bulk/ tone/ strength in the bilateral upper extremities normal Vertebral body tenderness to palpation over Facet loading test positive Thoracic spine Muscle bulk / tone/ strength in the bilateral paraspinal muscles normal Vertebral body tender to palpation Facet loading test positive Lumbar spine: Motor bulk/ tone/ strength lower extremities , thigh and legs : 5/5 Deep tendon reflexes : Normal Knee Jerk. Normal Ankle Jerk . Vertebral body tenderness to palpation over Lumbar Facet Loading Test positive Straight Leg Raise: positive at 30 degrees right side/ left side Gaenslen's Test positive Sacral spine : Severe tenderness over the Sacroiliac joint: right side / left side Range of motion: Flexion of the lumbar spine <60 degrees Range of motion: Extension of the lumbar spine <20 degrees Vertebral body tenderness to palpation over S1 Gaenslen's Test positive Peewee's Test positive Alonzo test: positive right side / left side Thigh Thrust Test Sacral Thrust Test Assessment and plan: Chronic low back pain secondary to lumbar degenerative disc disease , lumbar spondylosis with facet arthropathy without myelopathy Recommendation of caudal EDMUNDO #2. May need a series of injections, up to 3 within a six-month timeframe, for optimal pain relief. Risks, benefits of procedure discussed and pt verbalized understanding. Denies a medical history of diabetes. Admits to Eliquis use. Protocol for discontinuation/ continuation of medications kim procedure discussed. All patient questions answered I have spent 31 minutes on patient care today. Dr Perez was available by phone for the evaluation of this patient. The time was used to review the medical records including relevant urine studies and Prescription history (MAP s), review of the available imaging, evaluation and examination of the patient, coordination of care with the medical staff and if applicable referring physicians, as well as creation of the medical record PQRS Narrative: Hx Alcohol Use (MH) Yes: SOCIAL Home Medications: Ambulatory Orders Levothyroxine Sodium [Synthroid] 150 mcg PO DAILY 12/25/19 Loratadine [Claritin] 10 mg PO DAILY PRN 12/25/19 Pramipexole [Mirapex] 0.5 mg PO TID PRN 12/25/19 Ibuprofen [Motrin Ib] 800 mg PO Q8H PRN 12/29/19 Apixaban [Eliquis] 5 mg PO BID 10/08/20 Controlled Substance Measures - Controlled Substance Measures Is patient prescribed a controlled substance at discharge?: No
== END ==
LOC: PNWHC3 09:02
PROVIDERS: ATTEND Specialist
DX: M51.36 Other intervertebral disc degeneration, lumbar region (principal); M47.816 Spondylosis without myelopathy or radiculopathy, lumbar region; G89.29 Other chronic pain; Z88.0 Allergy status to penicillin; Z88.5 Allergy status to narcotic agent; Z88.8 Allergy status to other drugs, medicaments and biological substances
CPT/HCPCS: 99211

== ENCOUNTER 2021-11-15 05:59 | Day surgery (SDC) | payer MEDICARE ==
[~2021-11-15 05:59] MED LIST changes: +LIDOCAINE 1% (10MG/ML) FOR IV START INTRADERMA PRN
[2021-11-15 06:28] VITALS: TEMP 97.3
[2021-11-15] MEDS ORDERED: methylPREDNISolone ACETATE 80 MG/ML 1 ML VIAL ONE (06:55)
[2021-11-15] MEDS ORDERED: IOPAMIDOL M200 10 ML VIAL ONE (06:55)
--- NOTE | 2021-11-15 07:10 | P.PCN ---
Date of Procedure: 11/15/21 Procedure(s) Performed: PREOPERATIVE DIAGNOSIS:1- Lumbar post laminectomy syndrome. 2-lumbar radiculopathy. 3-lumbar spondylosis with lumbar facet arthropathy POSTOPERATIVE DIAGNOSIS: Same as pre -Op Diagnosis. PROCEDURE: 1. Caudal epidural steroid injection under fluoroscopic guidance. (Fluoroscopy images available in the radiology department ) 2. Caudal epidurogram ANESTHESIA: Local with 1% lidocaine; 3 ml only EBL: None. PROCEDURE INDICATION: The patient with neuropathic pain radiating distally returns for caudal epidural steroid injection. PROCEDURE DESCRIPTION: The patient was seen and identified in the preoperative area. Risks, benefits, complications, and alternatives were discussed with the patient. The patient agreed to proceed with the procedure and signed the consent., and vital signs were stable. Patient was taken to the OR and time out was completed. The patient was placed in the prone position on procedure table and a pillow was placed under the abdomen to reduce lumbar lordosis. The lumbosacral area was prepped and draped in the usual sterile fashion. Critical pause was taken. Vital signs were closely monitored during the procedure. Using lateral fluoroscopy the anterior-posterior plates of the sacrum were identified and the skin and deeper tissues corresponding into sacrococcygeal ligament were anesthetized using approximately 3 mL of 1% lidocaine. Then under fluoroscopy, a 3-1/2-inch 18-gauge Tuohy epidural needle was guided through the sacrococcygeal ligament, and into the epidural space. After negative aspiration, a 2 mL of Isovue 200 contrast dye was injected with excellent epidurogram. Again after negative aspiration for CSF, blood, and with no paresthesias, then Depo-Medrol 60mg, 2ml of 1% preservative free Lidocaine with 6ml of preservative free normal saline(total of 8 ml)solution was injected with washout of epidurogram. Needle was withdrawn intact. Skin was cleansed, and bandage was applied. COMPLICATIONS: None DISPOSITION / PLANS: The patient was placed in a supine position and transferred to the recovery area in a stable condition for observation and was discharged from the recovery room after meeting discharge criteria. Home discharge instructions given to the patient by the staff. The patient was reexamined prior to discharge. The patient will schedule a follow up in the clinic in 2-4 weeks. Elequis was held for more than 72 hours
[2021-11-15 07:17] VITALS: RESP 18
[2021-11-15 07:26] VITALS: BP 145/95; PULSE 84
--- NOTE | 2021-11-15 07:33 | FL ---
Intraoperative/procedural fluoroscopic services were provided for caudal epidural steroid injection. Total fluoroscopy time is 4 seconds with a total of 2 submitted images to PACS. Please see the operat evelyn note for further details.
== END 2021-11-15 07:35 | disposition home or self-care (01) ==
LOC: ORPAIN 05:59
PROVIDERS: ATTEND Specialist
DX: M47.26 Other spondylosis with radiculopathy, lumbar region (principal); M96.1 Postlaminectomy syndrome, not elsewhere classified; Z88.8 Allergy status to other drugs, medicaments and biological substances
CPT/HCPCS: 62323; J1040; Q9966

== ENCOUNTER → 2021-12-07 | Outpatient (CLI) | payer MEDICARE ==
[2021-12-07 09:46] VITALS: BP 134/73; PULSE 85; RESP 18; TEMP 97.8
--- NOTE | 2021-12-07 14:26 | P.PAINPG ---
PQRS Measure Charge Sheet Comment: A 71 yr old male w at side with a history of severe and chronic low back pain x 1 yr secondary to lumbar degenerative disc diseases and lumbar spondylosis with facet arthropathy without myelopathy presents today for evaluation s/p Caudal EDMUNDO. Pt states he experienced 100% pain relief x 3 wks s/p procedure. Pain level is currently at 4/10 in intensity, constant, localized in the lower lumbar spine, dull/ achy in character w burning/ shooting towards the BLEs. Pain is provoked by bending/ twisting/ lifting. Pain is alleviated with Pt x 6 wks 1 1/2 yrs ago, massage integrated w PT, heat, medications (Celebrex, Tylenol prn), topicals, repositioning and rest. Interventional pain procedures completed include Caudal EDMUNDO x 3, BL TFESI L4-L5 Patient is currently on Celebrex prn Patient denies any side effects of the medication(s), denies excessive drowsiness or sleepiness, denies suicidal ideation and reports that the current pain medication is helping to control the pain and improve activities of daily living. Patient denies any motor or sensory deficits. Patient denies any fever or night sweats, denies any change in the bowel movements or urination. Physical Examination: -Constitutional: Cooperative. Not in acute distress . - Neurologic: Cranial nerve II to XII intact. No focal neurological deficits. - Psychatric: Alert & oriented x 3. Matching mood & appropriate affect. Judgment and insight intact. - Musculoskeletal: Cervical spine: Muscle bulk/ tone/ strength in the bilateral upper extremities normal Vertebral body tenderness to palpation over Spurling test positive Distraction test positive Facet loading test positive Thoracic spine Muscle bulk / tone/ strength in the bilateral paraspinal muscles normal Vertebral body tender to palpation over Facet loading test positive Lumbar spine: Motor bulk/ tone/ strength lower extremities , thigh and legs : 5/5 Deep tendon reflexes : Normal Knee Jerk. Normal Ankle Jerk . Vertebral body tenderness to palpation over Lumbar Facet Loading Test positive Straight Leg Raise: positive at 30 degrees right side/ left side Gaenslen's Test positive Sacral spine : Severe tenderness over the Sacroiliac joint: right side / left side Range of motion: Flexion of the lumbar spine <60 degrees Range of motion: Extension of the lumbar spine <20 degrees Gaenslen's Test positive Peewee's Test positive Alonzo test: positive right side / left side Thigh Thrust Test Sacral Thrust Test Assessment and plan: Chronic low back pain secondary to lumbar degenerative disc disease , lumbar spondylosis with facet arthropathy without myelopathy Pt exhibited sufficient and substantial pain relief w prior procedure. He will manage residual pain w home pain mgmt modalities and may return to this clinic on an as needed basis. All patient questions answered I have spent less than 30 minutes on patient care today. Dr Perez was available by phone for the evaluation of this patient. The time was used to review the medical records including relevant urine studies and Prescription history (MAPs), review of the available imaging, evaluation and examination of the patient, coordination of care with the medical staff and if applicable referring physicians, as well as creation of the medical record PQRS Narrative: Hx Alcohol Use (MH) Yes: SOCIAL Home Medications: Ambulatory Orders Levothyroxine Sodium [Synthroid] 150 mcg PO DAILY 12/25/19 Loratadine [Claritin] 10 mg PO DAILY PRN 12/25/19 Pramipexole [Mirapex] 0.5 mg PO TID PRN 12/25/19 Ibuprofen [Motrin Ib] 800 mg PO Q8H PRN 12/29/19 Apixaban [Eliquis] 5 mg PO BID 10/08/20 Controlled Substance Measures - Controlled Substance Measures Is patient prescribed a controlled substance at discharge?: No
== END ==
LOC: PNWHC3 08:53
PROVIDERS: ATTEND Specialist
DX: M47.816 Spondylosis without myelopathy or radiculopathy, lumbar region (principal); M51.36 Other intervertebral disc degeneration, lumbar region; G89.29 Other chronic pain; Z88.0 Allergy status to penicillin; Z88.6 Allergy status to analgesic agent; Z88.4 Allergy status to anesthetic agent
CPT/HCPCS: 99211

== ENCOUNTER 2022-02-21 06:00 | Day surgery (SDC) | payer MEDICARE ==
[2022-02-17 10:17] VITALS: BMI 33.7
[2022-02-21 06:27] VITALS: PULSE 70; TEMP 97.8
[2022-02-21] MEDS ORDERED: methylPREDNISolone ACETATE 40 MG/ML 1 ML VIAL ONE (06:54)
[2022-02-21] MEDS ORDERED: IOPAMIDOL M200 10 ML VIAL ONE (06:54)
[2022-02-21] MEDS ORDERED: ROPIVACAINE 5 MG/ML 20 ML AMPULE ONE (06:54)
--- NOTE | 2022-02-21 07:13 | P.PCN ---
Date of Procedure: 02/21/22 Description of Procedure: PREOP DIAGNOSIS: Lumbar postlaminectomy syndrome POSTOP DIAGNOSIS: Lumbar postlaminectomy syndrome PROCEDURE: Caudal epidural steroid injection with epidurolysis and epidurogram under fluoroscopic guidance Imaging: Fluoroscopy was used, images where saved to the medical record ANESTHESIA: Local with 1% lidocaine 5 ml, no sedation PROCEDURE INDICATION: The patient with post-laminectomy syndrome with low back pain and radiculopathy radiating down in both legs, here for a caudal epidural steroid injection with epidurolysis. PROCEDURE DESCRIPTION: The patient was seen and identified in the preoperative area. Risks, benefits, complications, and alternatives were discussed with the patient. The patient agreed to proceed with the procedure and signed the consent. IV was started, and vital signs were stable. Patient was taken to the OR and time out was completed. The patient was placed in the prone position on procedure table and a pillow was placed under the abdomen to reduce lumbar lordosis. The lumbosacral area was prepped and draped in the usual sterile fashion. Vital signs were closely monitored during the pr ocedure. Lateral view and the anterior-posterior plates of the sacrum were identified with infiltration of the area overlying the sacral hiatus with 1% lidocaine. A 17 gauge epidural needle was used to advance through the sacral hiatus into the caudal epidural space. Omnipaque 180 dye 2cc was injected and the position of the needle was verified to be in the midline. A Racz catheter was introduced into the epidural space and was advanced towards the L5-S1 interspace under direct fluoroscopic guidance. Multiple passes were made with the catheter for lysis of epidural adhesions avoiding parasthesia and significant resistance. After epidurolysis was complete, 2cc of contrast dye was again used to evaluate spread of contrast. Contrast was spreading beyond the original level prior to epidurolysis to the level of L4 After negative aspiration, I injected a solution consisting of 40mg of Depo- Medrol, 2ml of Preservative free normal saline and 2ml of ropivacaine 0.5% for a total of 5ml. Additional spread was seen to L4 under fluoroscopy. The needle and the catheter were withdrawn intact. Epidurogram findings: Omnipaque 180 mg dye 2 ml was injected with spread of the dye into the caudal epidural space and with spread cutoff at L5 prior to epidurolysis. Post epidurolysis dye 2 ml was injected and spread was seen to L4 COMPLICATIONS: None. DISPOSITION / PLANS: The patient was placed in a supine position and transferred to the recovery area in a stable condition for observation and was discharged from the recovery room after meeting discharge criteria. Home discharge instructions given to the patient by the staff. The patient was reexamined prior to discharge. The patient will schedule a follow up as directed
[2022-02-21 07:20] VITALS: RESP 15
[2022-02-21] MEDS ORDERED: LACTATED RINGERS 1,000 ML IV SCH (07:30)
[2022-02-21 07:34] VITALS: BP 153/84
--- NOTE | 2022-02-21 09:37 | FL ---
EXAMINATION TYPE: FL guided pain mgmt statistic DATE OF EXAM: 02/21/2022 FLUOROSCOPY Fluoroscopy time of 6 seconds was used during caudal epidural injection. 2 image/s document/s the pr diego.
== END 2022-02-21 07:50 | disposition home or self-care (01) ==
LOC: ORPAIN 06:00
PROVIDERS: ATTEND Hospitalist
DX: M96.1 Postlaminectomy syndrome, not elsewhere classified (principal); M54.16 Radiculopathy, lumbar region; Z88.0 Allergy status to penicillin
CPT/HCPCS: 62323; J1030; Q9966; J2795; C1894

== ENCOUNTER → 2022-03-09 | Outpatient (CLI) | payer MEDICARE ==
[2022-03-09 14:49] VITALS: BP 130/77; PULSE 73; RESP 18; TEMP 98.1
--- NOTE | 2022-03-09 15:00 | P.PAINPG ---
Objective - Vital Signs Vital signs: Vital Signs Temp 98.1 F 03/09/22 14:43 Pulse 73 03/09/22 14:43 Resp 18 03/09/22 14:43 BP 130/77 03/09/22 14:43 Pulse Ox 95 03/09/22 14:43 FiO2 Intake & Output 03/08/22 03/09/22 03/09/22 18:59 06:59 18:59 Weight 103.419 kg PQRS Measure Charge Sheet Mode of Arrival: Ambulatory Comment: A 71 yr old male with a history of severe and chronic LBP secondary to lumbar DDD and spondylosis with facet arthropathy without myelopathy presents today for evaluation s/p caudal EDMUNDO w lysis. 70% relief x 2 wks s/p procedure. Pain level is provoked at 8/10 in intensity by evening after over activity, constant, localized in the lumbar spine, burning, sharp in character w shooting towards the BLEs. Pain is alleviated with Pt x 6 wks in 2020, heat, ice, meds (Ibu, Tyl), topicals, repositioning and rest. Interventional pain procedures completed include Caudal EDMUNDO w lysis Patient is currently on Tyl, Ibu Patient denies any side effects of the medication(s), denies excessive drowsiness or sleepiness, denies suicidal ideation and reports that the current pain medication is helping to control the pain and improve activities of daily living. Patient denies any motor or sensory deficits. Patient denies any fever or night sweats, denies any change in the bowel movements or urination. Physical Examination: -Constitutional: Cooperative. Not in acute distress . - Neurologic: Cranial nerve II to XII intact. No focal neurological deficits. - Psychatric: Alert & oriented x 3. Matching mood & appropriate affect. Judgment and insight intact. - Musculoskeletal: Cervical spine: Muscle bulk/ tone/ strength in the bilateral upper extremities normal Vertebral body tenderness to palpation over Spurling test positive Distraction test positive Facet loading test positive Thoracic spine Muscle bulk / tone/ strength in the bilateral paraspinal muscles normal Vertebral body tender to palpation over Facet loading test positive Lumbar spine: Motor bulk/ tone/ strength lower extremities , thigh and legs : 5/5 Deep tendon reflexes : Normal Knee Jerk. Normal Ankle Jerk . Vertebral body tenderness to palpation over L5 Lumbar Facet Loading Test positive Straight Leg Raise: positive at 30 degrees right side/ left side Gaenslen's Test positive Sacral spine : Severe tenderness over the Sacroiliac joint: right side / left side Range of motion: Flexion of the lumbar spine <60 degrees Range of motion: Extension of the lumbar spine <20 degrees Gaenslen's Test positive Alonzo test: positive right side / left side Thigh Thrust Test Sacral Thrust Test Assessment and plan: Chronic LBP secondary to lumbar DDD, spondylosis with facet arthropathy without myelopathy Recommendation of Caudal EDMUNDO. May need a series of injections, up to 4 within a 12 mo period, for optimal pain relief. Risks, benefits of procedure discussed and pt verbalized understanding. Admits to anticoagulant use or medical history of diabetes. Protocol for discontinuation/ continuation of medications kim procedure discussed. All patient questions answered I have spent less than 30 minutes on patient care today. Dr Perez was available by phone for the evaluation of this patient. The time was used to review the medical records including relevant urine studies and Prescription history (MAPs), review of the available imaging, evaluation and examination of the patient, coordination of care with the medical staff and if applicable referring physicians, as well as creation of the medical record - Pain Location Bilateral Lower Back Non-Pharmacological Interventions: Heat, Ice, Inactivity, Physical Therapy, Sitting Pharmacological Interventions: Epidural, PRN Medication, Topical Medication PQRS Narrative: Blood Pressure 130/77 Pain Intensity [Bilateral 5 Lower Back] Scale Used Numeric (1 - 10) Hx Alcohol Use (MH) Yes: SOCIAL Home Medications: Ambulatory Orders Loratadine [Claritin] 10 mg PO DAILY PRN 12/25/19 Pramipexole [Mirapex] 0.5 mg PO TID PRN 12/25/19 Ibuprofen [Motrin Ib] 800 mg PO Q8H PRN 12/29/19 Apixaban [Eliquis] 5 mg PO BID 10/08/20 Levothyroxine Sodium 200 mcg PO DAILY 02/17/22 Amiodarone [Cordarone] 200 mg PO DAILY 02/21/22 Controlled Substance Measures - Controlled Substance Measures Is patient prescribed a controlled substance at discharge?: No
== END ==
LOC: PNWHC3 14:23
PROVIDERS: ATTEND Specialist
DX: M47.816 Spondylosis without myelopathy or radiculopathy, lumbar region (principal); M51.36 Other intervertebral disc degeneration, lumbar region; G89.29 Other chronic pain; Z88.0 Allergy status to penicillin; Z88.8 Allergy status to other drugs, medicaments and biological substances; Z88.5 Allergy status to narcotic agent
CPT/HCPCS: 99211

== ENCOUNTER 2022-06-01 06:03 | Day surgery (SDC) | payer MEDICARE ==
[2022-06-01] MEDS ORDERED: LIDOCAINE 1% (10MG/ML) FOR IV START INTRADERMA PRN (06:09)
[2022-06-01] MEDS ORDERED: LACTATED RINGERS 1,000 ML IV SCH (06:09)
[2022-06-01 06:24] VITALS: RESP 16; TEMP 98
[2022-06-01] MEDS ORDERED: IOPAMIDOL M200 10 ML VIAL ONE (07:05)
[2022-06-01] MEDS ORDERED: methylPREDNISolone ACETATE 80 MG/ML 1 ML VIAL ONE (07:05)
--- NOTE | 2022-06-01 07:15 | P.PCN ---
Date of Procedure: 06/01/22 Procedure(s) Performed: PREOPERATIVE DIAGNOSIS:1- Lumbar post laminectomy syndrome. 2-lumbar radiculopathy. 3-lumbar spondylosis with lumbar facet arthropathy POSTOPERATIVE DIAGNOSIS: Same as pre -Op Diagnosis. PROCEDURE: 1. Caudal epidural steroid injection under fluoroscopic guidance. (Fluoroscopy images available in the radiology department ) 2. Caudal epidurogram ANESTHESIA: Local with 1% lidocaine; 3 ml only EBL: None. PROCEDURE INDICATION: The patient with neuropathic pain radiating distally returns for caudal epidural steroid injection. PROCEDURE DESCRIPTION: The patient was seen and identified in the preoperative area. Risks, benefits, complications, and alternatives were discussed with the patient. The patient agreed to proceed with the procedure and signed the consent., and vital signs were stable. Patient was taken to the OR and time out was completed. The patient was placed in the prone position on procedure table and a pillow was placed under the abdomen to reduce lumbar lordosis. The lumbosacral area was prepped and draped in the usual sterile fashion. Critical pause was taken. Vital signs were closely monitored during the procedure. Using lateral fluoroscopy the anterior-posterior plates of the sacrum were identified and the skin and deeper tissues corresponding into sacrococcygeal ligament were anesthetized using approximately 3 mL of 1% lidocaine. Then under fluoroscopy, a 3-1/2-inch 18-gauge Tuohy epidural needle was guided through the sacrococcygeal ligament, and into the epidural space. After negative aspiration, a 3 mL of Isovue 300 contrast dye was injected with excellent epidurogram. Again after negative aspiration for CSF, blood, and with no paresthesias, then Depo-Medrol 60mg, 2ml of 1% preservative free Lidocaine with 6ml of preservative free normal saline(total of 8 ml)solution was injected with washout of epidurogram. Needle was withdrawn intact. Skin was cleansed, and bandage was applied. COMPLICATIONS: None DISPOSITION / PLANS: The patient was placed in a supine position and transferred to the recovery area in a stable condition for observation and was discharged from the recovery room after meeting discharge criteria. Home discharge instructions given to the patient by the staff. The patient was reexamined prior to discharge. The patient will schedule a follow up in the clinic in 2-4 weeks. Elequis was held for more than 72 hours
--- NOTE | 2022-06-01 07:29 | FL ---
Intraoperative/procedural fluoroscopic services were provided for caudal epidural injection. Total fl uoroscopy time is 4 seconds with a total of 2 submitted images to PACS. Total DAP [id number]. Please see the operative note for further details.
[2022-06-01 07:35] VITALS: BP 144/88; PULSE 78
== END 2022-06-01 07:38 | disposition home or self-care (01) ==
LOC: ORPAIN 06:03
PROVIDERS: ATTEND Specialist
DX: M96.1 Postlaminectomy syndrome, not elsewhere classified (principal); M47.26 Other spondylosis with radiculopathy, lumbar region; Z79.01 Long term (current) use of anticoagulants; Z88.0 Allergy status to penicillin; Z88.4 Allergy status to anesthetic agent
CPT/HCPCS: 62323; J1040; Q9966

== ENCOUNTER → 2022-06-21 | Outpatient (CLI) | payer MEDICARE ==
[2022-06-21 09:02] VITALS: BP 150/86; PULSE 70; RESP 18; TEMP 97.5
--- NOTE | 2022-06-21 14:29 | P.PAINPG ---
PQRS Measure Charge Sheet Comment: A 72 yr old male w at side with a history of severe and chronic LBP secondary to lumbar DDD and spondylosis with facet arthropathy without myelopathy presents today for evaluation s/p Caudal EDMUNDO. Pt states he experienced 75 % pain relief x 3 wks s/p procedure. Pain level is provoked at 7 /10 in intensity, constant, localized in the lumbar spine, achy in character w shooting towards the BLEs. Pain is provoked by climbing ladder. Pain is alleviated with PT w massage in 2021 which was ineffective, heat, ice, repositioning and rest. Interventional pain procedures completed include Caudal EDMUNDO Patient is currently on Tyl Patient denies any side effects of the medication(s), denies excessive drowsi ness or sleepiness, denies suicidal ideation and reports that the current pain medication is helping to control the pain and improve activities of daily living. Patient denies any motor or sensory deficits. Patient denies any fever or night sweats, denies any change in the bowel movements or urination. Physical Examination: -Constitutional: Cooperative. Not in acute distress . - Neurologic: Cranial nerve II to XII intact. No focal neurological deficits. - Psychatric: Alert & oriented x 3. Matching mood & appropriate affect. Judgment and insight intact. - Musculoskeletal: Cervical spine: Muscle bulk/ tone/ strength in the bilateral upper extremities normal Vertebral body tenderness to palpation over Spurling test positive Distraction test positive Facet loading test positive TTP Thoracic spine Muscle bulk / tone/ strength in the bilateral paraspinal muscles normal Vertebral body tender to palpation over Facet loading test positive TTP Lumbar spine: Motor bulk/ tone/ strength lower extremities , thigh and legs : 5/5 Deep tendon reflexes : Normal Knee Jerk. Normal Ankle Jerk . Vertebral body tenderness to palpation over L5 Lumbar Facet Loading Test positive Straight Leg Raise: positive at 30 degrees right side> left side Gaenslen's Test positive Sacral spine : Severe tenderness over the Sacroiliac joint: right side / left side Range of motion: Flexion of the lumbar spine <60 degrees Range of motion: Extension of the lumbar spine <20 degrees Gaenslen's Test positive right side / left side Alonzo test: positive right side / left side Thigh Thrust Test positive right side / left side Sacral Thrust Test positive right side / left side Assessment and plan: Chronic LBP secondary to lumbar DDD, spondylosis with facet arthropathy without myelopathy Recommendation of Caudal EDMUNDO w lysis. May need a series of injections for optimal pain relief. Risks, benefits of procedure discussed and pt verbalized understanding. Admits to anticoagulant use or medical history of diabetes. Protocol for discontinuation/ continuation of medications kim procedure discussed. All questions answered. I have spent less than 30 minutes on patient care today. Dr Perez was available by phone for the evaluation of this patient. The time was used to review the medical records including relevant urine studies and Prescription history (MAPs), review of the available imaging, evaluation and examination of the patient, coordination of care with the medical staff and if applicable referring physicians, as well as creation of the medical record PQRS Narrative: Hx Alcohol Use (MH) Yes: SOCIAL Home Medications: Ambulatory Orders Loratadine [Claritin] 10 mg PO DAILY PRN 12/25/19 Pramipexole [Mirapex] 0.5 mg PO TID PRN 12/25/19 Ibuprofen [Motrin Ib] 800 mg PO Q8H PRN 12/29/19 Apixaban [Eliquis] 5 mg PO BID 10/08/20 Levothyroxine Sodium 200 mcg PO DAILY 02/17/22 Amiodarone [Cordarone] 100 mg PO DAILY 02/21/22 Controlled Substance Measures - Controlled Substance Measures Is patient prescribed a controlled substance at discharge?: No
== END ==
LOC: PNWHC3 07:56
PROVIDERS: ATTEND Specialist
DX: M51.36 Other intervertebral disc degeneration, lumbar region (principal); M47.816 Spondylosis without myelopathy or radiculopathy, lumbar region; Z88.0 Allergy status to penicillin; Z88.5 Allergy status to narcotic agent; Z88.4 Allergy status to anesthetic agent
CPT/HCPCS: 99211

== ENCOUNTER 2022-07-27 06:13 | Day surgery (SDC) | payer MEDICARE ==
[2022-07-27 06:41] VITALS: TEMP 97.7
[2022-07-27] MEDS ORDERED: LACTATED RINGERS 1,000 ML IV SCH (07:00)
[2022-07-27] MEDS ORDERED: IOPAMIDOL M200 10 ML VIAL ONE (07:04)
[2022-07-27] MEDS ORDERED: methylPREDNISolone ACETATE 80 MG/ML 1 ML VIAL ONE (07:04)
--- NOTE | 2022-07-27 07:12 | P.PCN ---
Date of Procedure: 07/27/22 Procedure(s) Performed: PREOPERATIVE DIAGNOSIS:1- Lumbar post laminectomy syndrome. 2-lumbar radiculopathy. 3-lumbar spondylosis with lumbar facet arthropathy POSTOPERATIVE DIAGNOSIS: Same as pre -Op Diagnosis. PROCEDURE: 1. Caudal epidural steroid injection under fluoroscopic guidance. (Fluoroscopy images available in the radiology department ) 2. Caudal epidurogram ANESTHESIA: Local with 1% lidocaine; 3 ml only EBL: None. PROCEDURE INDICATION: The patient with neuropathic pain radiating distally returns for caudal epidural steroid injection. PROCEDURE DESCRIPTION: The patient was seen and identified in the preoperative area. Risks, benefits, complications, and alternatives were discussed with the patient. The patient agreed to proceed with the procedure and signed the consent., and vital signs were stable. Patient was taken to the OR and time out was completed. The patient was placed in the prone position on procedure table and a pillow was placed under the abdomen to reduce lumbar lordosis. The lumbosacral area was prepped and draped in the usual sterile fashion. Critical pause was taken. Vital signs were closely monitored during the procedure. Using lateral fluoroscopy the anterior-posterior plates of the sacrum were identified and the skin and deeper tissues corresponding into sacrococcygeal ligament were anesthetized using approximately 3 mL of 1% lidocaine. Then under fluoroscopy, a 3-1/2-inch 18-gauge Tuohy epidural needle was guided through the sacrococcygeal ligament, and into the epidural space. After negative aspiration, a 3 mL of Isovue 300 contrast dye was injected with excellent epidurogram. Again after negative aspiration for CSF, blood, and with no paresthesias, then Depo-Medrol 60mg, 2ml of 1% preservative free Lidocaine with 6ml of preservative free normal saline(total of 8 ml)solution was injected with washout of epidurogram. Needle was withdrawn intact. Skin was cleansed, and bandage was applied. COMPLICATIONS: None DISPOSITION / PLANS: The patient was placed in a supine position and transferred to the recovery area in a stable condition for observation and was discharged from the recovery room after meeting discharge criteria. Home discharge instructions given to the patient by the staff. The patient was reexamined prior to discharge. The patient will schedule a follow up in the clinic in 2-4 weeks. Elequis was held for more than 72 hours
[2022-07-27 07:19] VITALS: RESP 16
[2022-07-27 07:32] VITALS: BP 156/85; PULSE 69
--- NOTE | 2022-07-27 07:49 | FL ---
Fluoroscopy History: Caudal Epid Inj 7SEC FL, DAP .[id number] mGym2
== END 2022-07-27 07:37 | disposition home or self-care (01) ==
LOC: ORPAIN 06:13
PROVIDERS: ATTEND Specialist
DX: M46.26 Osteomyelitis of vertebra, lumbar region (principal); M96.1 Postlaminectomy syndrome, not elsewhere classified; I48.91 Unspecified atrial fibrillation; Z79.01 Long term (current) use of anticoagulants
CPT/HCPCS: 62323; J1040; Q9966

== ENCOUNTER → 2022-08-24 | Outpatient (CLI) | payer MEDICARE ==
[2022-08-24 08:40] VITALS: BP 174/90; PULSE 72; RESP 18; TEMP 98
--- NOTE | 2022-08-24 14:33 | P.PAINPG ---
PQRS Measure Charge Sheet Comment: A 72 yr old male with a history of severe and chronic LBP secondary to lumbar DDD and spondylosis with facet arthropathy without myelopathy presents today for evaluation s/p Caudal EDMUNDO. Pt states he experienced 100 % pain relief x 4 wks s/p procedure. Pain level is provoked at 9 /10 in intensity, constant, localized in the lumbar spine, stinging in character w shooting towards the BLEs. Pain is provoked by climbing ladders. Pain is alleviated with PT w massage in 2021 which was ineffective, medications, heat, ice, repositioning and rest. Oswestry axial pain score of 4. Interventional pain procedures completed include Caudal EDMUNDO x2 Patient is currently on Tyl, Ibu Patient denies any side effects of the medication(s), denies excessive drowsiness or sleepiness, denies suicidal ideation and reports that the current pain medication is helping to control the pain and improve activities of daily living. Patient denies any motor or sensory deficits. Patient denies any fever or night sweats, denies any change in the bowel movements or urination. Physical Examination: -Constitutional: Cooperative. Not in acute distress . - Neurologic: Cranial nerve II to XII intact. No focal neurological deficits. - Psychatric: Alert & oriented x 3. Matching mood & appropriate affect. Judgment and insight intact. - Musculoskeletal: Cervical spine: Muscle bulk/ tone/ strength in the bilateral upper extremities normal Vertebral body tenderness to palpation over Spurling test positive Distraction test positive Facet loading test positive TTP Thoracic spine Muscle bulk / tone/ strength in the bilateral paraspinal muscles normal Vertebral body tender to palpation over Facet loading test positive TTP Lumbar spine: Motor bulk/ tone/ strength lower extremities , thigh and legs : 5/5 Deep tendon reflexes : Normal Knee Jerk. Normal Ankle Jerk . Vertebral body tenderness to palpation Taut bands w twitch response over BL L1-L5 Lumbar Facet Loading Test positive Straight Leg Raise: positive at 30 degrees right side> left side Gaenslen's Test positive Sacral spine : Severe tenderness over the Sacroiliac joint: right side / left side Range of motion: Flexion of the lumbar spine <60 degrees Range of motion: Extension of the lumbar spine <20 degrees Gaenslen's Test positive right side / left side Alonzo test: positive right side / left side Thigh Thrust Test positive right side / left side Sacral Thrust Test positive right side / left side Assessment and plan: Chronic LBP secondary to lumbar DDD, spondylosis with facet arthropathy without myelopathy Recommendation of BL TPIs lumbar spine. May need a series of injections for optimal pain relief. Risks, benefits of procedure discussed and pt verbal ized understanding. Admits to anticoagulant use or medical history of diabetes. Protocol for discontinuation/ continuation of medications kim procedure discussed. All questions answered. I have spent less than 30 minutes on patient care today. Dr Perez was available by phone for the evaluation of this patient. The time was used to review the medical records including relevant urine studies and Prescription history (MAPs), review of the available imaging, evaluation and examination of the patient, coordination of care with the medical staff and if applicable referring physicians, as well as creation of the medical record PQRS Narrative: Hx Alcohol Use (MH) Yes: SOCIAL Home Medications: Ambulatory Orders Loratadine [Claritin] 10 mg PO DAILY PRN 12/25/19 Pramipexole [Mirapex] 0.5 mg PO TID PRN 12/25/19 Apixaban [Eliquis] 5 mg PO BID 10/08/20 Levothyroxine Sodium 200 mcg PO DAILY 02/17/22 Amiodarone [Cordarone] 100 mg PO DAILY 02/21/22 Acetaminophen Tab [Tylenol] 325 mg PO Q4H PRN 07/25/22 Controlled Substance Measures - Controlled Substance Measures Is patient prescribed a controlled substance at discharge?: No
== END ==
LOC: PNWHC3 08:00
PROVIDERS: ATTEND Specialist
DX: M51.36 Other intervertebral disc degeneration, lumbar region (principal); M47.816 Spondylosis without myelopathy or radiculopathy, lumbar region; G89.29 Other chronic pain; Z88.0 Allergy status to penicillin; Z88.4 Allergy status to anesthetic agent; Z88.5 Allergy status to narcotic agent
CPT/HCPCS: 99211

== ENCOUNTER 2022-09-28 06:10 | Day surgery (SDC) | payer MEDICARE ==
[~2022-09-28 06:10] MED LIST changes: -LIDOCAINE 1% (10MG/ML) FOR IV START INTRADERMA PRN
[2022-09-28 06:30] VITALS: TEMP 97.9
[2022-09-28] MEDS ORDERED: methylPREDNISolone ACETATE 40 MG/ML 1 ML VIAL ONE (07:10)
[2022-09-28] MEDS ORDERED: ROPIVACAINE 5 MG/ML 20 ML AMPULE ONE (07:10)
--- NOTE | 2022-09-28 07:16 | P.PCN ---
Date of Procedure: 09/28/22 Procedure(s) Performed: Procedure= trigger point injections lumbar paraspinal muscles bilaterally , 3 on the right side from L1 to S1, and 4 on the left side from L1 to S1. Preoperative diagnosis= 1-myofascial pain syndrome lumbar paraspinal muscles 2-lumbar postlaminectomy pain syndrome 3-lumbar facet arthropathy Postoperative diagnosis=Same as preop Diagnosis . Complication = none Condition= stable Anesthesia= none Indication for the procedure= patient complaining of low back pain , examination was positive for multiple trigger point in the lumbar paraspinal muscles bilaterally and patient diagnosed with myofascial pain syndrome and is here to have trigger point injections Description of the procedure= procedure risk and benefits discussed with the patient, including but not limited, risk of infection and bleeding, and ALLERGIC reaction to the medication and not complete pain relief and patient agreed with the preceding patient taken to the operating room, placed in sitting position or standard monitors applied to the patient then after induction of anesthesia back prepped with chlorhexidine 3 times , then under sterile technique each of the trigger point that was marked in the preop holding area 3 on the right side lumbar paraspinal muscles and 4 on the left side lumbar paraspinal muscles each one of them injected with the 2 mL of the mixture of ropivacaine 0.5% 14 ML mixed with 40 mg of Depo-Medrol and 2 mL of the mixture injected at each trigger point after negative aspiration, using 25-gauge needle, injection done after negative aspiration under was no paresthesia during the injection patient tolerated the procedure well without any complications and he will follow up in the pain clinic in a few weeks
[2022-09-28 07:25] VITALS: BP 159/78; PULSE 78; RESP 18
== END 2022-09-28 07:41 | disposition home or self-care (01) ==
LOC: ORPAIN 06:10
PROVIDERS: ATTEND Specialist
DX: M79.18 Myalgia, other site (principal); M96.1 Postlaminectomy syndrome, not elsewhere classified; M47.816 Spondylosis without myelopathy or radiculopathy, lumbar region; Z79.01 Long term (current) use of anticoagulants
CPT/HCPCS: 20553; J1030; J2795

== ENCOUNTER → 2022-10-25 | Outpatient (CLI) | payer MEDICARE ==
[2022-10-25 09:05] VITALS: BP 164/85; PULSE 67; RESP 16; TEMP 98.4
--- NOTE | 2022-10-25 15:42 | P.PAINPG ---
PQRS Measure Charge Sheet Comment: A 72 yr old male w at side with a history of severe and chronic LBP secondary to lumbar DDD and spondylosis with facet arthropathy without myelopathy presents today for evaluation s/p BL Lumbar TPIs. Pt states he experienced 60 % pain relief x 2 wks s/p procedure. Pain level is provoked at 10 /10 in intensity, constant, localized in the lumbar spine, burning in character w shooting towards the BLEs. Pain is provoked by climbing ladders. Pain is alleviated with PT w massage in 2021 which was ineffective, medications, heat, ice, repositioning and rest. Oswestry axial pain score of 14. Interventional pain procedures completed include Caudal EDMUNDO x2, BL Lumbar TPIs Patient is currently on Tyl, Ibu, topical Patient denies any side effects of the medication(s), denies excessive drowsiness or sleepiness, denies suicidal ideation and reports that the current pain medication is helping to control the pain and improve activities of daily living. Patient denies any motor or sensory deficits. Patient denies any fever or night sweats, denies any change in the bowel movements or urination. Physical Examination: -Constitutional: Cooperative. Not in acute distress . - Neurologic: Cranial nerve II to XII intact. No focal neurological deficits. - Psychatric: Alert & oriented x 3. Matching mood & appropriate affect. Judgment and insight intact. - Musculoskeletal: Cervical spine: Muscle bulk/ tone/ strength in the bilateral upper extremities normal Vertebral body tenderness to palpation over Spurling test positive Distraction test positive Facet loading test positive TTP Thoracic spine Muscle bulk / tone/ strength in the bilateral paraspinal muscles normal Vertebral body tender to palpation over Facet loading test positive TTP Lumbar spine: Motor bulk/ tone/ strength lower extremities , thigh and legs : 5/5 Deep tendon reflexes : Normal Knee Jerk. Normal Ankle Jerk . Vertebral body tenderness to palpation L5 Lumbar Facet Loading Test positive Straight Leg Raise: positive at 30 degrees right side> left side Gaenslen's Test positive Sacral spine : Severe tenderness over the Sacroiliac joint: right side / left side Range of motion: Flexion of the lumbar spine <60 degrees Range of motion: Extension of the lumbar spine <20 degrees Gaenslen's Test positive right side / left side Alonzo test: positive right side / left side Thigh Thrust Test positive right side / left side Sacral Thrust Test positive right side / left side Assessment and plan: Chronic LBP secondary to lumbar DDD, spondylosis with facet arthropathy without myelopathy Recommendation of Caudal EDMUNDO #3. May need a series of injections for optimal pain relief. Risks, benefits of procedure discussed and pt verbalized understanding. Admits to anticoagulant use or medical history of diabetes. Protocol for discontinuation/ continuation of medications kim procedure discussed. All questions answered. I have spent less than 30 minutes on patient care today. Dr Perez was available by phone for the evaluation of this patient. The time was used to review the medical records including relevant urine studies and Prescription history (MAPs), review of the available imaging, evaluation and examination of the patient, coordination of care with the medical staff and if applicable referring physicians, as well as creation of the medical record PQRS Narrative: Hx Alcohol Use (MH) Yes: SOCIAL Home Medications: Ambulatory Orders Loratadine [Claritin] 10 mg PO DAILY PRN 12/25/19 Pramipexole [Mirapex] 0.5 mg PO TID PRN 12/25/19 Apixaban [Eliquis] 5 mg PO BID 10/08/20 Levothyroxine Sodium 200 mcg PO DAILY 02/17/22 Amiodarone [Cordarone] 100 mg PO DAILY 02/21/22 Acetaminophen Tab [Tylenol] 325 mg PO Q4H PRN 07/25/22 Controlled Substance Measures - Controlled Substance Measures Is patient prescribed a controlled substance at discharge?: No
== END ==
LOC: PNWHC3 07:41
PROVIDERS: ATTEND Specialist
DX: M51.36 Other intervertebral disc degeneration, lumbar region (principal); M47.816 Spondylosis without myelopathy or radiculopathy, lumbar region; G89.29 Other chronic pain; Z88.0 Allergy status to penicillin; Z88.8 Allergy status to other drugs, medicaments and biological substances
CPT/HCPCS: 99211

== ENCOUNTER 2022-12-05 06:21 | Day surgery (SDC) | payer MEDICARE ==
[2022-12-05 06:56] VITALS: TEMP 98.1
[2022-12-05] MEDS ORDERED: LACTATED RINGERS 1,000 ML IV SCH (07:00)
[2022-12-05] MEDS ORDERED: IOPAMIDOL M200 10 ML VIAL ONE (07:19)
[2022-12-05] MEDS ORDERED: ROPIVACAINE 5MG/ML 20ML VIAL ONE (07:19)
[2022-12-05] MEDS ORDERED: methylPREDNISolone ACETATE 40 MG/ML 1 ML VIAL ONE (07:19)
--- NOTE | 2022-12-05 07:27 | P.PCN ---
Date of Procedure: 12/05/22 Description of Procedure: PREOPERATIVE DIAGNOSIS: Lumbar post laminectomy syndrome. POSTOPERATIVE DIAGNOSIS: Lumbar post laminectomy syndrome. PROCEDURE: 1. Caudal epidural steroid injection under fluoroscopic guidance. 2. Caudal epidurogram Imaging: Fluoroscopy was used, images where saved to the medical record ANESTHESIA: Local with 1% lidocaine; 5ml for subcutaneous infiltrations PROCEDURE DESCRIPTION: The patient was seen and identified in the preoperative area. Risks, benefits, complications, and alternatives were discussed with the patient. The patient agreed to proceed with the procedure and signed the consent. Vital signs were stable. Patient was taken to the OR and time out was completed. The patient was placed in the prone position on procedure table and a pillow was placed under the abdomen to reduce lumbar lordosis. The lumbosacral area was prepped and draped in the usual sterile fashion. Critical pause was taken. Vital signs were closely monitored during the procedure. Using lateral fluoroscopy the anterior-posterior plates of the sacrum were identified and the skin and deeper tissues corresponding into sacrococcygeal ligament were anesthetized using approximately 5 mL of 1% lidocaine. Then under fluoroscopy, a 3-1/2-inch 20-gauge Tuohy epidural needle was guided through the sacrococcygeal ligament, and into the epidural space. After negative aspiration, a 2 mL of omnipaque-180 contrast dye was injected with excellent epidurogram. Again after negative aspiration for CSF, blood, and with no paresthesias, Depomedrol 40mg along with 2ml of 0.5% ropivacaine with 2 ml of preservative free normal saline (total of 5ml) solution was injected with washout of epidurogram. Needle was withdrawn intact. Skin was cleansed, and bandage was applied. COMPLICATIONS: None DISPOSITION / PLANS: The patient was placed in a supine position and transferred to the recovery area in a stable condition for observation and was discharged from the recovery room after meeting discharge criteria. Home discharge instructions given to the patient by the staff. The patient was reexamined prior to discharge. The patient will schedule a follow up in the clinic in 6 weeks.
[2022-12-05 08:17] VITALS: BP 161/83; PULSE 77; RESP 16
--- NOTE | 2022-12-05 09:38 | FL ---
Fluoroscopy History: TINY CAUDAL EPIDURAL STER IINJ FL TIME 8 SECS DAP [id number]
== END 2022-12-05 07:59 | disposition home or self-care (01) ==
LOC: ORPAIN 06:21
PROVIDERS: ATTEND Hospitalist
DX: M96.1 Postlaminectomy syndrome, not elsewhere classified (principal); Z88.5 Allergy status to narcotic agent; Z79.01 Long term (current) use of anticoagulants
CPT/HCPCS: 62323; J1030; Q9966; J2795

== ENCOUNTER → 2023-01-18 | Outpatient (CLI) | payer MEDICARE ==
[2023-01-18 09:26] VITALS: BP 137/73; PULSE 65; RESP 15; TEMP 98.5
--- NOTE | 2023-01-18 15:31 | P.PAINPG ---
PQRS Measure Charge Sheet Comment: A 72 yr old male w at side with a history of severe and chronic LBP secondary to lumbar DDD and spondylosis with facet arthropathy without myelopathy presents today for evaluation s/p Caudal EDMUNDO #3. Pt states he experienced 70 % pain relief x 6 wks s/p procedure. Pain level is provoked at 6 /10 in intensity, constant, localized in the lumbar spine, predominantly axial, burning in character w occasional shooting towards the BLEs. Pain is provoked by climbing ladders. Pain is alleviated with PT x 6 wks w massage in 2021 which was ineffective, physician guided stretches 5 times/ wk since 2021, brisk walks twice weekly x 6 mo, medications, heat, ice, repositioning and rest. Oswestry axial pain score of 13. Interventional pain procedures completed include Caudal EDMUNDO x3, BL Lumbar TPIs Patient is currently on Tyl, Ibu, topical Patient denies any side effects of the medication(s), denies excessive drowsiness or sleepiness, denies suicidal ideation and reports that the current pain medication is helping to control the pain and improve activities of daily living. Patient denies any motor or sensory deficits. Patient denies any fever or night sweats, denies any change in the bowel movements or urination. Physical Examination: -Constitutional: Cooperative. Not in acute distress . - Neurologic: Cranial nerve II to XII intact. No focal neurological deficits. - Psychatric: Alert & oriented x 3. Matching mood & appropriate affect. Judgment and insight intact. - Musculoskeletal: Cervical spine: Muscle bulk/ tone/ strength in the bilateral upper extremities normal Vertebral body tenderness to palpation over Spurling test positive Distraction test positive Facet loading test positive TTP Thoracic spine Muscle bulk / tone/ strength in the bilateral paraspinal muscles normal Vertebral body tender to palpation over Facet loading test positive TTP Lumbar spine: Motor bulk/ tone/ strength lower extremities , thigh and legs : 5/5 Deep tendon reflexes : Normal Knee Jerk. Normal Ankle Jerk . Vertebral body tenderness to palpation L5 Lumbar Facet Loading Test positive Straight Leg Raise: positive at 30 degrees right side> left side Gaenslen's Test positive Sacral spine : Severe tenderness over the Sacroiliac joint: right side / left side Range of motion: Flexion of the lumbar spine <60 degrees Range of motion: Extension of the lumbar spine <20 degrees Gaenslen's Test positive right side / left side Alonzo test: positive right side / left side Thigh Thrust Test positive right side / left side Sacral Thrust Test positive right side / left side Assessment and plan: Chronic LBP secondary to lumbar DDD, spondylosis with facet arthropathy without myelopathy Recommendation of Caudal EDMUNDO w Lysis #4. May need a series of injections for optimal pain relief. Risks, benefits of procedure discussed and pt verbalized understanding. Admits to anticoagulant use or medical history of diabetes. Protocol for discontinuation/ continuation of medications kim procedure discussed. All questions answered. I have spent less than 30 minutes on patient care today. Dr Perez was available by phone for the evaluation of this patient. The time was used to review the medical records including relevant urine studies and Prescription history (MAPs), review of the available imaging, evaluation and examination of the patient, coordination of care with the medical staff and if applicable referring physicians, as well as creation of the medical record PQRS Narrative: Hx Alcohol Use (MH) Yes: SOCIAL Home Medications: Ambulatory Orders Loratadine [Claritin] 10 mg PO DAILY PRN 12/25/19 Pramipexole [Mirapex] 0.5 mg PO TID PRN 12/25/19 Apixaban [Eliquis] 5 mg PO BID 10/08/20 Levothyroxine Sodium 200 mcg PO DAILY 02/17/22 Amiodarone [Cordarone] 100 mg PO DAILY 02/21/22 Acetaminophen Tab [Tylenol] 325 mg PO Q4H PRN 07/25/22 Controlled Substance Measures - Controlled Substance Measures Is patient prescribed a controlled substance at discharge?: No
== END ==
LOC: PNWHC3 07:45
PROVIDERS: ATTEND Specialist
DX: M51.36 Other intervertebral disc degeneration, lumbar region (principal); M47.816 Spondylosis without myelopathy or radiculopathy, lumbar region; Z88.0 Allergy status to penicillin; Z88.5 Allergy status to narcotic agent
CPT/HCPCS: 99211

== ENCOUNTER 2023-03-08 06:22 | Day surgery (SDC) | payer MEDICARE ==
[2023-03-02 15:22] VITALS: BMI 35.9
[2023-03-08] MEDS ORDERED: LACTATED RINGERS 1,000 ML IV SCH (06:39)
[2023-03-08 07:05] VITALS: TEMP 97.6
[2023-03-08] MEDS ORDERED: methylPREDNISolone ACETATE 80 MG/ML 1 ML VIAL ONE (07:37)
[2023-03-08] MEDS ORDERED: IOPAMIDOL M200 10 ML VIAL ONE (07:37)
--- NOTE | 2023-03-08 07:52 | P.PCN ---
Date of Procedure: 03/08/23 Procedure(s) Performed: PREOP DIAGNOSIS: 1- Lumbar postlaminectomy syndrome.2-lumbar spondylosis with lumbar facet arthropathy without myelopathy POSTOP DIAGNOSIS:1- Lumbar postlaminectomy syndrome.2-lumbar spondylosis with lumbar facet arthropathy without myelopathy PROCEDURE: 1-Caudal epidural steroid injection with epidurolysis and epidurogram under fluoroscopic guidance. (Fluoroscopy images available in the radiology Department 2-caudal epidurogram. ANESTHESIA: Lidocaine 1% 5 mL only. EBL: Minimal. PROCEDURE INDICATION: The patient with post-laminectomy syndrome with low back pain and radiculopathy radiating down in both legs, here for a caudal epidural steroid injection with epidurolysis. PROCEDURE DESCRIPTION: The patient was seen and identified in the preoperative area. Risks, benefits, complications, and alternatives were discussed with the patient. The patient agreed to proceed with the procedure and signed the consent, and vital signs were stable. Patient was taken to the OR and time out was completed. The patient was placed in the prone position on procedure table and a pillow was placed under the abdomen to reduce lumbar lordosis. The lumbosacral area was prepped and draped in the usual sterile fashion. Vital signs were closely monitored during the procedure. lateral view and the anterior-posterior plates of the sacrum were identified with infiltration of the area overlying the sacral hiatus with 1% lidocaine .A 17 gauge RK epidural needle was used to advance through the sacral hiatus into the caudal epidural space. Omnipaque 180 dye. 2cc was injected and the position of the needle was verified to be in the midline. A Racz catheter was introduced into the epidural space and was advanced towards the L5-S1 interspace under direct fluoroscopic guidance. Multiple passes were made with the catheter for lysis of epidural adhesions. Depo-Medrol 60 mg ( preservative-free ) with 3ml of preservative free Lidocaine 1% and 3 ml of preservative free normal saline was injected slowly. Additional spread was seen to L4 under fluoroscopy. The needle and the catheter were withdrawn intact. EPIDUROGRAM: Omnipaque 180 mg dye 2 ml was injected with spread of the dye into the caudal epidural space and with spread cutoff at L5 prior to epidurolysis. Post epidurolysis dye 2 ml was injected and spread was seen to L4-5.There was further spread of the solution together with the dye above the L4 COMPLICATIONS: None. DISPOSITION / PLANS: The patient was placed in a supine position and transferred to the recovery area in a stable condition for observation and was discharged from the recovery room after meeting discharge criteria. Home discharge instructions given to the patient by the staff. The patient was reexamined prior to discharge. The patient will schedule a follow up in the clinic in 2-4 weeks.
--- NOTE | 2023-03-08 08:15 | FL ---
EXAMINATION TYPE: FL guided pain mgmt statistic Intraoperative/procedural fluoroscopic services were provided. Total fluoroscopy time is 8.3 seconds with a total of 5 submitted images to PACS. Please se e the operative/procedural note for further details. DAP: 0.68236 mGym2
[2023-03-08 08:46] VITALS: BP 151/83; PULSE 64; RESP 18
== END 2023-03-08 08:07 | disposition home or self-care (01) ==
LOC: ORPAIN 06:22
PROVIDERS: ATTEND Specialist
DX: M96.1 Postlaminectomy syndrome, not elsewhere classified (principal); M47.26 Other spondylosis with radiculopathy, lumbar region; Z88.5 Allergy status to narcotic agent; Z88.4 Allergy status to anesthetic agent; Z88.0 Allergy status to penicillin; Z79.01 Long term (current) use of anticoagulants
CPT/HCPCS: 62264; J1040; Q9966

== ENCOUNTER → 2023-06-06 | Outpatient (CLI) | payer MEDICARE ==
[2023-06-06 10:18] VITALS: BP 124/91; PULSE 79; RESP 16; TEMP 97.1
--- NOTE | 2023-06-06 14:10 | P.PAINPG ---
PQRS Measure Charge Sheet Comment: A 73 yr old male w at side with a history of severe and chronic LBP secondary to post laminectomy syndrome presents today for evaluation s/p Caudal EDMUNDO w Lysis #4. Pt states he experienced 80 % pain relief x 6-8 wks s/p procedure. Pain level is provoked at 8 /10 in intensity, constant, localized in the lumbar spine, predominantly axial, burning in character w occasional shooting towards the BLEs. Pain is provoked by climbing ladders. Pain is alleviated with PT x 6 wks w massage in 2021 which was ineffective, physician guided stretches 5 times/ wk since 2021, brisk walks twice weekly x 6 mo, medications, heat, ice, repositioning and rest. Oswestry axial pain score of 17. Interventional pain procedures completed include Caudal EDMUNDO x4 (w lysis 06/04- 03/07), BL Lumbar TPIs Patient is currently on Tyl, Ibu, topical Patient denies any side effects of the medication(s), denies excessive drowsines s or sleepiness, denies suicidal ideation and reports that the current pain medication is helping to control the pain and improve activities of daily living. Patient denies any motor or sensory deficits. Patient denies any fever or night sweats, denies any change in the bowel movements or urination. Physical Examination: -Constitutional: Cooperative. Not in acute distress . - Neurologic: Cranial nerve II to XII intact. No focal neurological deficits. - Psychatric: Alert & oriented x 3. Matching mood & appropriate affect. Judgment and insight intact. - Musculoskeletal: Cervical spine: Muscle bulk/ tone/ strength in the bilateral upper extremities normal Vertebral body tenderness to palpation over Spurling test positive Distraction test positive Facet loading test positive TTP Thoracic spine Muscle bulk / tone/ strength in the bilateral paraspinal muscles normal Vertebral body tender to palpation over Facet loading test positive TTP Lumbar spine: Motor bulk/ tone/ strength lower extremities , thigh and legs : 5/5 Deep tendon reflexes : Normal Knee Jerk. Normal Ankle Jerk . Vertebral body tenderness to palpation L5 Lumbar Facet Loading Test positive Straight Leg Raise: positive at 30 degrees right side> left side Gaenslen's Test positive Sacral spine : Severe tenderness over the Sacroiliac joint: right side / left side Range of motion: Flexion of the lumbar spine <60 degrees Range of motion: Extension of the lumbar spine <20 degrees Gaenslen's Test positive right side / left side Alonzo test: positive right side / left side Thigh Thrust Test positive right side / left side Sacral Thrust Test positive right side / left side Assessment and plan: Chronic LBP secondary to post laminectomy syndrome Recommendation of Caudal EDMUNDO w lysis #1. May need a series of injections for optimal pain relief. Risks, benefits of procedure discussed and pt verbalized understanding. Admits to anticoagulant use or medical history of diabetes. Protocol for discontinuation/ continuation of medications kim procedure discussed. All questions answered. I have spent less than 30 minutes on patient care today. Dr Perez was available by phone for the evaluation of this patient. The time was used to review the medical records including relevant urine studies and Prescription history (MAPs), review of the available imaging, evaluation and examination of the patient, coordination of care with the medical staff and if applicable referring physicians, as well as creation of the medical record PQRS Narrative: Hx Alcohol Use (MH) Yes: SOCIAL Home Medications: Ambulatory Orders Loratadine [Claritin] 10 mg PO DAILY PRN 12/25/19 Pramipexole [Mirapex] 0.5 mg PO TID PRN 12/25/19 Apixaban [Eliquis] 5 mg PO BID 10/08/20 Levothyroxine Sodium 200 mcg PO DAILY 02/17/22 Amiodarone [Cordarone] 100 mg PO DAILY 02/21/22 Acetaminophen Tab [Tylenol] 325 mg PO Q4H PRN 07/25/22 Controlled Substance Measures - Controlled Substance Measures Is patient prescribed a controlled substance at discharge?: No
== END ==
LOC: PNWHC3 09:20
PROVIDERS: ATTEND Specialist
DX: M96.1 Postlaminectomy syndrome, not elsewhere classified (principal); G89.29 Other chronic pain; M54.50 Low back pain, unspecified; Z88.0 Allergy status to penicillin; Z88.8 Allergy status to other drugs, medicaments and biological substances
CPT/HCPCS: 99211

== ENCOUNTER 2023-06-19 06:47 | Day surgery (SDC) | payer MEDICARE ==
[2023-06-19] MEDS ORDERED: ROPIVACAINE 5MG/ML 20ML VIAL ONE (08:00)
[2023-06-19] MEDS ORDERED: IOPAMIDOL M200 10 ML VIAL ONE (08:00)
[2023-06-19] MEDS ORDERED: TRIAMCINOLONE ACETONIDE 40 MG/ML 1 ML VIAL ONE (08:00)
[2023-06-19 08:12] VITALS: RESP 16; TEMP 97.4
--- NOTE | 2023-06-19 08:13 | P.PCN ---
Date of Procedure: 06/19/23 Pathology: none sent Condition: stable Disposition: PACU Description of Procedure: PREOP DIAGNOSIS: Lumbar postlaminectomy syndrome. POSTOP DIAGNOSIS: Lumbar postlaminectomy syndrome. PROCEDURE: Caudal epidural steroid injection with epidurolysis and epidurogram under fluoroscopic guidance ANESTHESIA: Local with 1% lidocaine EBL: Minimal. PROCEDURE INDICATION: The patient with post-laminectomy syndrome with low back pain and radiculopathy radiating down in both legs, here for a caudal epidural steroid injection with epidurolysis. PROCEDURE DESCRIPTION: The patient was seen in the preoperative holding area consent was obtained then he was brought into the procedure room and placed in prone position. Skin was prepped with ChloraPrep and draped in a sterile manner. Lidocaine 1% was used to numb the skin up at the target point that was chosen as follows: The lateral view of fluoroscopy was used to identify the sacral hiatus and then after localizing the skin with lidocaine 1% I used 18- gauge epidural needle with a plastic sheath to go through the sacral hiatus and into the sacral canal and then injected 1 mL of Omnipaque for verification of needle tip position. After that the metal core of the needle was taken out and the plastic sheath was kept in the sacral canal. Then Racz catheter was introduced through the plastic sheath and into the epidural space at the sacral canal using the AP view of fluoroscopy up to L5-S1 level then I injected 2 MLS of Omnipaque which showed spread in the epidural space and after few back and forth movements of the Racz catheter I injected 60 mg of Kenalog +2 MLS of Ropivacaine 0.5% +7 MLS of preservative-free normal saline to a total volume of 10 MLS in the epidural space. Patient tolerated procedure well. A copy of the needle placement x-ray was saved to the C-arm machine. COMPLICATIONS: None. DISPOSITION / PLANS: The patient was placed in a supine position and transferred to the recovery area in a stable condition for observation and was discharged f rom the recovery room after meeting discharge criteria. Home discharge instructions given to the patient by the staff. The patient was reexamined prior to discharge. The patient will schedule a follow up in the clinic in 2-4 weeks.
[2023-06-19 09:01] VITALS: BP 160/84; PULSE 69
--- NOTE | 2023-06-19 10:38 | FL ---
EXAMINATION TYPE: FL guided pain mgmt statistic Intraoperative/procedural fluoroscopic services were provided. Total fluoroscopy time is 10.1 seconds with a total of 3 submitted images to PACS. Please s ee the operative/procedural note for further details. DAP: 0.3831 mGym2
== END 2023-06-19 08:35 | disposition home or self-care (01) ==
LOC: ORPAIN 06:47
PROVIDERS: ATTEND Anesthesiology
DX: M96.1 Postlaminectomy syndrome, not elsewhere classified (principal); M54.16 Radiculopathy, lumbar region; I48.91 Unspecified atrial fibrillation; E11.9 Type 2 diabetes mellitus without complications; Z88.0 Allergy status to penicillin; Z79.01 Long term (current) use of anticoagulants; Z88.5 Allergy status to narcotic agent; Z79.899 Other long term (current) drug therapy
CPT/HCPCS: 62323; J3301; Q9966; J2795

== ENCOUNTER → 2023-07-19 | Outpatient (CLI) | payer MEDICARE ==
[2023-07-19 11:03] VITALS: BP 145/87; PULSE 70; RESP 98
--- NOTE | 2023-07-19 14:32 | P.PAINPG ---
PQRS Measure Charge Sheet Comment: A 73 yr old male w at side with a history of severe and chronic LBP secondary to post laminectomy syndrome presents today for evaluation s/p Caudal EDMUNDO w Lysis #4. Pt states he experienced 90 % pain relief x 4 wks s/p procedure. Pain level is provoked at 5 /10 in intensity, constant, localized in the lumbar spine, predominantly axial, burning in character w occasional shooting towards the BLEs. Pain is provoked by climbing ladders. Pain is alleviated with PT x 6 wks w massage in 2021 which was ineffective, physician guided stretches 5 times/ wk since 2021, brisk walks twice weekly x 6 mo, medications, heat, ice, repositioning and rest. Oswestry axial pain score of 15. Interventional pain procedures completed include Caudal EDMUNDO x5 (w lysis 06/04, 03/07, 07/05), BL Lumbar TPIs Patient is currently on Tyl, Ibu, topical Patient denies any side effects of the medication(s), denies excessive drows iness or sleepiness, denies suicidal ideation and reports that the current pain medication is helping to control the pain and improve activities of daily living. Patient denies any motor or sensory deficits. Patient denies any fever or night sweats, denies any change in the bowel movements or urination. Physical Examination: -Constitutional: Cooperative. Not in acute distress . - Neurologic: Cranial nerve II to XII intact. No focal neurological deficits. - Psychatric: Alert & oriented x 3. Matching mood & appropriate affect. Judgment and insight intact. - Musculoskeletal: Cervical spine: Muscle bulk/ tone/ strength in the bilateral upper extremities normal Vertebral body tenderness to palpation over Spurling test positive Distraction test positive Facet loading test positive TTP Thoracic spine Muscle bulk / tone/ strength in the bilateral paraspinal muscles normal Vertebral body tender to palpation over Facet loading test positive TTP Lumbar spine: Motor bulk/ tone/ strength lower extremities , thigh and legs : 5/5 Deep tendon reflexes : Normal Knee Jerk. Normal Ankle Jerk . Vertebral body tenderness to palpation L5 Lumbar Facet Loading Test positive Straight Leg Raise: positive at 30 degrees right side> left side Gaenslen's Test positive Sacral spine : Severe tenderness over the Sacroiliac joint: right side / left side Range of motion: Flexion of the lumbar spine <60 degrees Range of motion: Extension of the lumbar spine <20 degrees Gaenslen's Test positive right side / left side Alonzo test: positive right side / left side Thigh Thrust Test positive right side / left side Sacral Thrust Test positive right side / left side Assessment and plan: Chronic LBP secondary to post laminectomy syndrome Recommendation of medication management. TyL #3 #30, Robaxin 500mg #60, Diclofenac gel w 1 RF. Use, side effects, adverse reactions, safe storage discussed. Opiate/ narcotic agreement signed 07/19/23. All questions answered. I have spent less than 30 minutes on patient care today. Dr Perez was available by phone for the evaluation of this patient. The time was used to review the medical records including relevant urine studies and Prescription history (MAPs), review of the available imaging, evaluation and examination of the patient, coordination of care with the medical staff and if applicable referring physicians, as well as creation of the medical record PQRS Narrative: Hx Alcohol Use (MH) Yes: SOCIAL Home Medications: Ambulatory Orders Loratadine [Claritin] 10 mg PO DAILY PRN 12/25/19 Pramipexole [Mirapex] 0.5 mg PO TID PRN 12/25/19 Apixaban [Eliquis] 5 mg PO BID 10/08/20 Levothyroxine Sodium 200 mcg PO DAILY 02/17/22 Amiodarone [Cordarone] 100 mg PO DAILY 02/21/22 Acetaminophen Tab [Tylenol] 325 mg PO Q4H PRN 07/25/22 Acetaminophen-Codeine 300-30mg [Tylenol w/codeine #3] 1 tab PO DAILY PRN 30 Days #30 tablet 07/19/23 Diclofenac Sodium Gel [Voltaren 1% Gel] 100 gm TOPICAL BID 30 Days #1 each 07/19/23 methocarbamoL [Robaxin] 500 mg PO BID PRN 30 Days #60 tab 07/19/23 Controlled Substance Measures - Controlled Substance Measures Is patient prescribed a controlled substance at discharge?: Yes When asked, does pt state using other controlled substances?: No If prescribed controlled substance>3 days was MAPS reviewed?: Yes If Rx opioid, was Start Talking consent form obtained?: Yes Was information provided regarding opioid addiction?: Yes
== END ==
LOC: PNWHC3 09:30
PROVIDERS: ATTEND Anesthesiology
DX: M96.1 Postlaminectomy syndrome, not elsewhere classified (principal); G89.29 Other chronic pain; Z88.0 Allergy status to penicillin; Z88.8 Allergy status to other drugs, medicaments and biological substances
CPT/HCPCS: 99211

== ENCOUNTER 2023-09-25 06:04 | Day surgery (SDC) | payer MEDICARE ==
[2023-09-25] MEDS ORDERED: methylPREDNISolone ACETATE 40 MG/ML 1 ML VIAL ONE (07:13)
[2023-09-25] MEDS ORDERED: IOPAMIDOL M200 10 ML VIAL ONE (07:13)
--- NOTE | 2023-11-15 10:35 | FL ---
EXAMINATION TYPE: FL guided pain mgmt statistic DATE OF EXAM: 10/16/2023 4:41 PM COMPARISON: Pre Operative Images if available both CT/MRI or plain film CLINICAL INDICATION: Male, 73 years old with history of CAUDAL EPI STER INJ; TECHNIQUE: FL guided pain mgmt statistic, multiple fluoroscopic images provided for procedure. Total fluoroscopy time: 5 seconds Total submitted images to PACS: 2 DAP: 2.6 mGym2 Gycm2 uGym2 cGycm2 or equivalent. FINDINGS: Fluoroscopic images during injection for pain management demonstrate multilevel degeneration changes throughout the spine. No evidence for fracture. No acute process identified. IMPRESSION: 1. No evidence for intraoperative complication. 2. Please see the operative/procedural note for further details. [facility], , 11/15/2023 10:33 AM
== END 2023-09-25 08:08 ==
LOC: ORPAIN 06:04
PROVIDERS: ATTEND Specialist
DX: M96.1 Postlaminectomy syndrome, not elsewhere classified (principal); M54.16 Radiculopathy, lumbar region; Z88.0 Allergy status to penicillin; Z88.8 Allergy status to other drugs, medicaments and biological substances
CPT/HCPCS: 62323

== ENCOUNTER → 2023-10-17 | Outpatient (CLI) | payer MEDICARE ==
[2023-10-17 08:23] VITALS: BP 134/78; PULSE 73; RESP 15; TEMP 97.6
--- NOTE | 2023-10-17 15:19 | P.PAINPG ---
PQRS Measure Charge Sheet Comment: A 73 yr old male with a history of severe and chronic LBP secondary to post laminectomy syndrome presents today for medication refills and evaluation s/p Caudal EDMUNDO . Pt states he experienced 80 % pain relief x 3 wks s/p procedure. Pain level is provoked at 2 /10 in intensity, constant, localized in the lumbar spine, predominantly axial, burning in character w occasional shooting towards the BLEs. Pain is provoked by climbing ladders. Pain is alleviated with PT x 6 wks w massage in 2021 which was ineffective, physician guided stretches 5 times/ wk since 2021, brisk walks twice weekly x 6 mo, medications, heat, ice, repositioning and rest. Interventional pain procedures completed include Caudal EDMUNDO x6 (w lysis 06/04, 03/07, 07/05, 10/05), BL Lumbar TPIs Patient is currently on Tyl, Ibu, topical Patient denies any side effects of the medication(s), denies excessive drowsiness or sleepiness, denies suicidal ideation and reports that the current pain medication is helping to control the pain and improve activities of daily living. Patient denies any motor or sensory deficits. Patient denies any fever or night sweats, denies any change in the bowel movements or urination. Physical Examination: -Constitutional: Cooperative. Not in acute distress . - Neurologic: Cranial nerve II to XII intact. No focal neurological deficits. - Psychatric: Alert & oriented x 3. Matching mood & appropriate affect. Judgment and insight intact. - Musculoskeletal: Cervical spine: Muscle bulk/ tone/ strength in the bilateral upper extremities normal Vertebral body tenderness to palpation over Spurling test positive Distraction test positive Facet loading test positive TTP Thoracic spine Muscle bulk / tone/ strength in the bilateral paraspinal muscles normal Vertebral body tender to palpation over Facet loading test positive TTP Lumbar spine: Motor bulk/ tone/ strength lower extremities , thigh and legs : 5/5 Deep tendon reflexes : Normal Knee Jerk. Normal Ankle Jerk . Vertebral body tenderness to palpation L5 Lumbar Facet Loading Test positive Straight Leg Raise: positive at 30 degrees right side> left side Gaenslen's Test positive Sacral spine : Severe tenderness over the Sacroiliac joint: right side / left side Range of motion: Flexion of the lumbar spine <60 degrees Range of motion: Extension of the lumbar spine <20 degrees Gaenslen's Test positive right side / left side Alonzo test: positive right side / left side Thigh Thrust Test positive right side / left side Sacral Thrust Test positive right side / left side Assessment and plan: Chronic LBP secondary to post laminectomy syndrome Will manage residual pain and may RTC on an as needed basis. Has ample supply of Tyl #3 #30, Robaxin 500mg #60, Diclofenac gel w 1 RF. Opiate/ narcotic agreement signed 07/19/23. All questions answered. I have spent less than 30 minutes on patient care today. Dr Perez was available by phone for the evaluation of this patient. The time was used to review the medical records including relevant urine studies and Prescription history (MAPs), review of the available imaging, evaluation and examination of the patient, coordination of care with the medical staff and if applicable referring physicians, as well as creation of the medical record PQRS Narrative: Hx Alcohol Use (MH) Yes: SOCIAL Home Medications: Ambulatory Orders Loratadine [Claritin] 10 mg PO DAILY PRN 12/25/19 Pramipexole [Mirapex] 0.5 mg PO TID PRN 12/25/19 Apixaban [Eliquis] 5 mg PO BID 10/08/20 Levothyroxine Sodium 200 mcg PO DAILY 02/17/22 Amiodarone [Cordarone] 100 mg PO DAILY 02/21/22 Acetaminophen Tab [Tylenol] 325 mg PO Q4H PRN 07/25/22 Acetaminophen-Codeine 300-30mg [Tylenol w/codeine #3] 1 tab PO DAILY PRN 30 Days #30 tablet 07/19/23 Diclofenac Sodium Gel [Voltaren 1% Gel] 100 gm TOPICAL BID 30 Days #1 each 07/19/23 methocarbamoL [Robaxin] 500 mg PO BID PRN 30 Days #60 tab 07/19/23 Controlled Substance Measures - Controlled Substance Measures Is patient prescribed a controlled substance at discharge?: No
== END ==
LOC: PNWHC3 08:02
PROVIDERS: ATTEND Specialist
DX: M54.16 Radiculopathy, lumbar region
CPT/HCPCS: 99211

== ENCOUNTER → 2023-11-26 | Outpatient (CLI) | payer MEDICARE | END | disposition home or self-care (01) | LOC: LABPAT 09:29 | PROVIDERS: ATTEND Orthopaedic Surgery | DX: Z01.818 Encounter for other preprocedural examination | CPT/HCPCS: 87070 ==

== ENCOUNTER 2024-01-02 10:31 | Day surgery (SDC) | payer MEDICARE ==
--- NOTE | 2023-12-28 13:29 | P.HPOR ---
History of Present Illness H&P Date: 12/28/23 Chief Complaint: Left knee pain The patient is a 73-year-old male who presents with progressive left knee pain for the past several years worsening recently. He's having pain with weightbearing activities along with swelling, locking, and buckling. He's tried medications in addition to injections with only temporary partial relief. Review of Systems Per HPI Past Medical History Past Medical History: Atrial Fibrillation, Cancer, Osteoarthritis (OA), Sleep Apnea/CPAP/BIPAP, Thyroid Disorder Additional Past Medical History / Comment(s): Burning and pain in legs, uses CPAP, hx prostate cancer 2006, restless leg syndrome-causes issues when first gets up, trips alot until "legs get going". Occasional migraines. allergies History of Any Multi-Drug Resistant Organisms: None Reported Past Surgical History: Appendectomy, Back Surgery, Cardiac Ablation, Pacemaker, Prostate Surgery Additional Past Surgical History / Comment(s): PAIN CLINIC PROCEDURES. Past Anesthesia/Blood Transfusion Reactions: Previous Problems w/ Anesthesia, Motion Sickness, Postoperative Nausea & Vomiting (PONV) Type of Cardiac Device: Permanent Pacemaker Device Placement Date:: 01/2022 Smoking Status: Never smoker - Past Family History Son(s) Family Medical History: Cancer Medications and Allergies Home Medications Medication Instructions Recorded Confirmed Type Loratadine [Claritin] 10 mg PO DAILY PRN 12/25/19 12/27/23 History Pramipexole [Mirapex] 0.5 mg PO TID PRN 12/25/19 12/27/23 History Apixaban [Eliquis] 5 mg PO BID 10/08/20 12/27/23 History Levothyroxine Sodium 200 mcg PO DAILY 02/17/22 12/27/23 History Acetaminophen Tab [Tylenol] 325 mg PO Q4H PRN 07/25/22 12/27/23 History methocarbamoL [Robaxin] 500 mg PO BID PRN 30 Days #60 tab 07/19/23 12/27/23 Rx Fluticasone Nasal [place] [Flonase 1 spray NASAL DIRECTED PRN 12/27/23 12/27/23 History Nasal [place]] Allergies Allergy/AdvReac Type Severity Reaction Status Date / Time Penicillins Allergy Unknown Verified 12/27/23 10:19 Childhood fentanyl AdvReac BP & heart Verified 12/27/23 10:19 rate dropped midazolam [From Versed] AdvReac BP AND Verified 12/27/23 10:19 HEART RATE DROPPED versed AdvReac BP AND Uncoded 12/27/23 10:19 HEART RATE DROPPED Physical Examination - Knee left Appearance: effusion Effusion grade: grade 1 Tenderness with palpation: anterior, medial Pain: throughout ROM Gait: limping ROM: extension: -15 degrees ROM: flexion: 120 degrees Crepitus with motion: Yes Strength: extension: 5/5 Strength: flexion: 5/5 Meniscal tests: medial meniscal tests: positive, medial joint line pain: positive Results Patient is a well-developed well-nourished male approximately 5 foot 8, 232 pounds of endomorphic habitus. HEENT exam is nonfocal, neck is supple. He has painless passive motion of the left hip. Straight leg raise is negative. He's tender about the medial joint line of the left knee. Collaterals are stable, Kusum is negative, Kahlil's is equivocal. He has genu varum alignment. His distal neurovascular appears intact in the left lower extremity. - Diagnostic results Knee x-ray: image reviewed (Trays of the left knee obtained in the office show severe medial and patellofemoral compartment osteoarthrosis with subchondral sclerosis and [id number] changes.) Assessment and Plan Assessment: Left knee severe medial and patellofemoral compartment osteoarthrosis Atrial fibrillation on anticoagulation Plan: I talked to the patient at length regarding his condition along with treatment options. At this point he is quite symptomatic having pain and mechanical symptoms related to his left knee osteoarthrosis despite previous conservative measures. After a thorough discussion he opts to proceed with surgery. We will plan to proceed with left total knee arthroplasty. Risks and benefits were discussed at length in layman's terms. We will reinstitute his anticoagulation postoperatively.
[~2024-01-02 10:31] MED LIST changes: -LACTATED RINGERS 1,000 ML IV SCH; +LIDOCAINE 1% (10MG/ML) FOR IV START INTRADERMA PRN; +TRANEXAMIC 1,000 MG/100ML-NACL 1,000 MG in SALINE 1 100ML.BAG IVPB PRN
[2024-01-02 11:50] LABS: INR 1.1 (<1.2); Prothrombin Time 11.4 sec (10.0-12.5)
[2024-01-02] MEDS: IV FLUID CONTINUATION 1,000 ML IV ONE (11:51)
[2024-01-02] MEDS: LACTATED RINGERS 1,000 ML IV SCH (11:52)
[2024-01-02] MEDS: ACETAMINOPHEN TAB 500 MG TAB PO PRN (11:57)
[2024-01-02] MEDS: MELOXICAM 7.5 MG TAB PO PRN (11:57)
[2024-01-02] MEDS: ONDANSETRON 4 MG/2 ML VIAL IVP ONE (11:58)
[2024-01-02] MEDS: DEXAMETHASONE SOD PHOSPHATE 4 MG/ML 1 ML VIAL IV ONE (11:58)
[2024-01-02] MEDS: HYDROmorphone 0.5 MG/0.5 ML SYRINGE IVP PRN (12:09)
[2024-01-02] MEDS ORDERED: KETAMINE HCL IN 0.9 % NACL 50 MG/5 ML SYRINGE ONE (12:21)
[2024-01-02] MEDS ORDERED: PROPOFOL 10 MG/ML 20 ML VIAL IV ONE (12:21)
[2024-01-02] MEDS ORDERED: TRANEXAMIC 1,000 MG/100ML-NACL PREMIX BAG ONE (12:21)
[2024-01-02] MEDS ORDERED: NEOSTIGMINE 1 MG/ML 10 ML VIAL ONE (12:21)
[2024-01-02] MEDS ORDERED: ROCURONIUM 10 MG/ML (5 ML VIAL) IV ONE (12:21)
[2024-01-02] MEDS ORDERED: ROPIVACAINE 5 MG/ML 30 ML VIAL ONE (12:21)
[2024-01-02] MEDS ORDERED: GLYCOPYRROLATE 0.2 MG/ML 2 ML VIAL ONE (12:21)
[2024-01-02] MEDS ORDERED: SODIUM CHLORIDE 0.9% (PF) 10 ML VIAL ONE (12:21)
[2024-01-02] MEDS ORDERED: PHENYLEPHRINE 10 MG/ML VIAL ONE (12:21)
[2024-01-02] MEDS ORDERED: LIDOCAINE 1% INJ 10MG/ML (20 ML MDV) ONE (12:21)
[2024-01-02] MEDS ORDERED: HYDROmorphone (PF) 1 MG/ML ONE (12:21)
[2024-01-02] MEDS ORDERED: SUCCINYLCHOLINE CHLORIDE 200 MG/10 ML VIAL IV ONE (12:21)
[2024-01-02] MEDS: ceFAZolin 1,000 MG in SODIUM CHLORIDE 0.9% 1,000 ML IRRIGATION ONE (12:26)
[2024-01-02] MEDS ORDERED: HYDROmorphone 0.5 MG/0.5 ML SYRINGE IVP PRN ×2 (14:02)
[2024-01-02] MEDS ORDERED: MAGNESIUM HYDROXIDE 2,400 MG/30 ML CUP PO PRN (14:02)
[2024-01-02] MEDS ORDERED: NALOXONE 0.4 MG/ML 1 ML VIAL IV PRN (14:02)
[2024-01-02] MEDS ORDERED: hydrOXYzine pamoate 25 MG CAP PO PRN (14:02)
[2024-01-02] MEDS ORDERED: HYDROcodone/APAP 7.5-325MG 1 EACH TAB PO PRN (14:02)
--- NOTE | 2024-01-02 14:21 | P.OP ---
Date of Procedure: 01/02/24 Preoperative Diagnosis: Left knee severe tricompartmental osteoarthrosis Postoperative Diagnosis: Same Procedure(s) Performed: Left total knee arthroplastycementedcruciate retaining Implants: DePuy attune size 8 cemented femoral component, size 7 cemented tibial component, 9 mm articular surface, 38 mm cemented patellar component. This is a pressure retaining implant. Anesthesia: [facility] Surgeon: Anurag Garcia Airset Molder #1: Yobany Pratt Estimated Blood Loss (ml): 50 Pathology: none sent Condition: stable Disposition: PACU Indications for Procedure: The patient is a 73-year-old male who presents with progressive left knee pain secondary to osteoarthrosis despite conservative measures. A discussion of the risks and benefits of operative intervention versus continued conservative measures was made with the patient. He opted to proceed with surgery. Operative risks include infection, neurovascular injury, development of blood clots, fracture, possible component loosening/failure and possible need for subsequent procedures was discussed. Informed consent was obtained. Operative Findings: As below Description of Procedure: The patient was brought to the operating room, and after induction of spinal anesthesia the left lower extremity was prepped and draped in a normal fashion. The tourniquet was inflated to 270 mmHg. A longitudinal incision extending 3 finger breaths above the superior pole of the patella extending to the medial aspect the tibial tubercle was then made. The skin and subcutaneous tissues were divided sharply. Electrocautery was used for hemostasis. A medial parapatellar arthrotomy was then performed. The medial soft tissues to include the superficial and deep portions of the medial collateral ligament as well as the medial hamstring tendons were elevated subperiosteally. The proximal medial tibia osteophytes were carefully removed. The patella was everted. The knee was flexed. A portion of the retropatellar fat pad was excised sharply. The anterior cruciate ligament was sacrificed. A starting hole was made in the distal femur 1 cm anterior to the posterior cruciate origin. An intramedullary femoral guide was gently inserted planning on 5 valgus distal cut with 9 mm distal resection. The cutting block was pinned in place. The distal cut was then made. The posterior referencing sizing guide was utilized. 3 of external rotation was built into the system and verified off the trans- epicondylar axis and the posterior condyles. I felt size 8 was most appropriate. The cutting block was pinned in place. The anterior, posterior, and chamfer cuts were then made. The bone fragments were removed. A sulcus cut was then made with the appropriate guide. The trial size 8 femoral component was then placed and was fully seated. There was good anterior to posterior and medial to lateral fit. The distal peg holes were then drilled. The trial component was then removed. Attention was then paid towards preparing the proximal tibia. An extra medullary guide was utilized in line with the tibial shaft and second metatarsal distally. A 7 posterior slope was planned. I planned on 2 mm resection from the medial compartment. The cutting block was pinned in place. The proximal tibial cut was then made. The bone was removed in one fragment. The remnants of the medial and lateral menisci were excised the capsule junction with electrocautery. The tibia sized most appropriately at size 7. The posterior osteophytes off the distal femur were carefully removed with a curved osteotome. The trial tibial and femoral components were placed along with a 9 millimeters articular surface. I was able to obtain full flexion and extension with good stability with varus and valgus stress. After several flexion and extension cycles, the tibial rotation was marked with electrocautery in line with the medial one third of the tibial tubercle. Attention was then paid towards preparing the patella. A patella reamer was utilized taking this down to 14 mm of bone stock. A good flush cut was made. The patella sized most appropriately at 38 millimeters. The peg holes were then drilled. The trial component was placed. The knee was taken through a range of motion. I had good patellofemoral tracking with no hands technique. The trial components were then removed. The tibia was prepared in the appropriate rotation with appropriate drill and keel punch. The flexion and extension gaps were checked and felt to be symmetric. The bony surfaces were prepared with pulsatile lavage and dried. The deep tibial component was then cemented in place and was fully seated. Excess cement was removed. The femoral component was cemented in place and was fully seated. Again excess cement was removed. The trial 9 millimeters surface was then inserted in the knee was put in full extension. The patella component was cemented in place. After the cement had sufficiently hardened, th e knee was again taken through a range of motion. Again there was good stability in flexion and extension with varus and valgus stress. The trial articular surface was then removed. The final articular surface was placed and was impacted. Care was taken to avoid any soft tissue interposition. Pulsatile lavage was again utilized. The tourniquet was deflated with approximately 60 minutes total tourniquet time. There was minimal drainage therefore a deep drain was not placed. The medial parapatellar arthrotomy was then closed with #2 Ethibond suture. The subcutaneous tissues were reapproximated interrupted 2- 0 Vicryl sutures. The skin was reapproximated with 3-0 subarticular strata fix suture. Skin tape and adhesive was applied. A sterile dressing was applied. The patient was then awoken from sedation and transferred to recovery room in good condition. Blood loss was estimated at 50 milliliters. No complications were incurred. Sponge and needle counts were correct at the end the case. Yobany ALCARAZ assisted during the major components this case to include exposure, bone resection, and implantation.
--- NOTE | 2024-01-02 14:56 | XR ---
EXAMINATION TYPE: XR knee limited LT DATE OF EXAM: 01/02/2024 CLINICAL HISTORY: Postoperative evaluation Two views of the left knee are submitted. Identified are changes of total knee arthroplasty with fem oral and tibial components appearing well seated. Postsurgical soft tissue changes are noted. Align ment is anatomic. [facility], , 01/02/2024 2:54 PM
[2024-01-02] MEDS ORDERED: PRAMIPEXOLE 0.5 MG TAB PO PRN (16:47)
[2024-01-02] MEDS ORDERED: LORATADINE 10 MG TAB PO PRN (16:47)
[2024-01-02] MEDS: droPERidol 5 MG/2 ML VIAL IVP ONE (17:03)
--- NOTE | 2024-01-02 17:37 | P.CONS ---
History of Present Illness - Reason for Consult Consult date: 01/02/24 Medical management Requesting physician: Anurag Garcia - Chief Complaint Left knee surgery - History of Present Illness Pleasant 73-year-old patient, follows with Dr. Olson. Chronic medical conditions include atrial fibrillation on Eliquis, osteoarthritis, obstructive sleep apnea uses CPAP, hypothyroid, restless leg syndrome, permanent pacemaker. Patient is undergone left total knee arthroplasty. And a dressing. Slight nausea post operative.. Family at the bedside. No chest pain or shortness of breath. Propped up in bed. Review of systems: GEN.: None EYES: None HEENT: None NECK: None RESPIRATORY: None CARDIOVASCULAR: None GASTROINTESTINAL: Normally has 1-2 bowel movements a day e GENITOURINARY: None MUSCULOSKELETAL: Joint pains] LYMPHATICS: None HEMATOLOGICAL: None PSYCHIATRY: None NEUROLOGICAL: None Social history: Does not smoke. Alcohol occasionally. Retired from maintenance. Physical examination: VITAL SIGNS: 98, 87, 16, 148 x 76, 96% on 2 L GENERAL: BMI 33.2, reclining bed awake not in distress. EYES: Pupils equal. Conjunctiva fidencio l. HEENT: External appearance of nose and ears normal, oral cavity grossly normal. NECK: JVD not raised; masses not palpable. HEART: First and second heart sounds are normal; no edema. LUNGS: Respiratory rate normal; clear to auscultation. ABDOMEN: Soft, nontender, liver spleen not palpable, no masses palpable. PSYCH: Alert and oriented x3; mood and affect fidencio l. MUSCULOSKELETAL:No Clubbing/cyanosis;muscles-grossly intact. Dressing over the left knee. OA in other joints NEUROLOGICAL: Cranial nerves grossly intact; no facial asymmetry, power and sensation grossly intact. LYMPHATICS: No lymph nodes palpable in the axilla and neck Assessment plan: -Left total knee arthroplasty Home dose of Eliquis has been resumed by orthopedic. Did receive IV cefazolin for infection prophylaxis. And 1 dose of Decadron. -Hypothyroid Levothyroxine 200 mcg a day -Restless leg syndrome Mirapex 0.5 mg 3 times daily as needed -Primary osteoarthritis Pain medication as needed -Obstructive sleep apnea Patient uses CPAP from home -Full code Care was discussed with patient. Questions answered. Thank you Dr. Garcia Past Medical History Past Medical History: Atrial Fibrillation, Cancer, Osteoarthritis (OA), Sleep Apnea/CPAP/BIPAP, Thyroid Disorder Additional Past Medical History / Comment(s): Burning and pain in legs, uses CPAP, hx prostate cancer 2006, restless leg syndrome-causes issues when first gets up, trips alot until "legs get going". Occasional migraines. allergies History of Any Multi-Drug Resistant Organisms: None Reported Past Surgical History: Appendectomy, Back Surgery, Cardiac Ablation, Pacemaker, Prostate Surgery Additional Past Surgical History / Comment(s): PAIN CLINIC PROCEDURES. Past Anesthesia/Blood Transfusion Reactions: Previous Problems w/ Anesthesia, Motion Sickness, Postoperative Nausea & Vomiting (PONV) Type of Cardiac Device: Permanent Pacemaker Device Placement Date:: 01/2022 Past Psychological History: No Psychological Hx Reported Smoking Status: Never smoker Past Alcohol Use History: Occasional Past Drug Use History: None Reported - Past Family History Son(s) Family Medical History: Cancer Medications and Allergies Home Medications Medication Instructions Recorded Confirmed Type Loratadine [Claritin] 10 mg PO DAILY PRN 12/25/19 01/02/24 History Pramipexole [Mirapex] 0.5 mg PO TID PRN 12/25/19 01/02/24 History Apixaban [Eliquis] 5 mg PO BID 10/08/20 01/02/24 History Levothyroxine Sodium 200 mcg PO DAILY 02/17/22 01/02/24 History Acetaminophen Tab [Tylenol] 325 mg PO Q4H PRN 07/25/22 01/02/24 History methocarbamoL [Robaxin] 500 mg PO BID PRN 30 Days #60 tab 07/19/23 01/02/24 Rx Fluticasone Nasal [place] [Flonase 1 spray NASAL DIRECTED PRN 12/27/23 01/02/24 History Nasal [place]] Allergies Allergy/AdvReac Type Severity Reaction Status Date / Time Penicillins Allergy Unknown Verified 01/02/24 11:07 Childhood fentanyl AdvReac BP & heart Verified 01/02/24 11:07 rate dropped midazolam [From Versed] AdvReac BP AND Verified 01/02/24 11:07 HEART RATE DROPPED versed AdvReac BP AND Uncoded 01/02/24 11:07 HEART RATE DROPPED Physical Exam Vitals: Vital Signs Temp Pulse Resp BP Pulse Ox 01/02/24 17:02 98.0 F 87 16 148/76 96 01/02/24 15:30 79 18 138/82 99 01/02/24 15:05 80 19 136/82 99 01/02/24 14:50 79 19 143/74 97 01/02/24 14:35 81 18 123/84 96 01/02/24 14:20 97 F L 89 18 134/85 97 01/02/24 12:24 83 16 163/95 99 01/02/24 11:39 97.4 F L 79 16 165/85 98 Intake and Output 01/02/24 01/02/24 01/02/24 06:59 14:59 22:59 Intake Total 1850 Output Total 50 Balance 1800 Intake: IV 1850 Output: Estimated Blood Loss 50 Other: Weight 99 kg 99 kg
[2024-01-02] MEDS: ONDANSETRON 4 MG/2 ML VIAL IVP PRN (17:47)
--- NOTE | 2024-01-02 18:29 | P.ANPRN ---
Procedure Note - Anesthesia - Nerve Block Performed Left Adductor Canal Infusion Time Out Performed: Yes (1209) Date of Procedure: 01/02/24 Procedure Start Time: 12:10 Procedure Stop Time: 12:15 Location of Patient: PreOp Indication: Acute Post-Operative Pain, Requested by Surgeon Specifically requested for management of pain by : Anurag Garcia Sedation Type: Sedate with meaningful contact maintained Preparation: Sterile Prep, Sterile Dressing Position: Supine Catheter Depth at Skin (cm): 8 Catheter: Indwelling Needle Types: Pajunk Needle Gauge: 18 Ultrasound used to visualize needle placement: Yes Ultrasound used to observe medication spread: Yes Injectate: 0.5% Ropivacaine (see comment for volume) (15cc+10cc nacl pf) Blood Aspirated: No Pain Paresthesia on Injection Noted: No Resistance on Injection: Normal Image Stored and Saved: Yes Events: Uneventful and Well Tolerated
--- NOTE | 2024-01-02 18:30 | P.ANPRN ---
Procedure Note - Anesthesia - Nerve Block Performed Left iPack Single Time Out Performed: Yes (1209) Date of Procedure: 01/02/24 Procedure Start Time: 12:16 Procedure Stop Time: 12:19 Location of Patient: PreOp Indication: Acute Post-Operative Pain, Requested by Surgeon Specifically requested for management of pain by DrSteff: Anurag Garcia Sedation Type: Sedate with meaningful contact maintained Preparation: Sterile Prep Position: Supine Catheter: None Needle Types: Pajunk Needle Gauge: 21 Ultrasound used to visualize needle placement: Yes Ultrasound used to observe medication spread: Yes Injectate: 0.5% Ropivacaine (see comment for volume) (15cc+10cc nacl pf) Blood Aspirated: No Pain Paresthesia on Injection Noted: No Resistance on Injection: Normal Image Stored and Saved: Yes Events: Uneventful and Well Tolerated
[2024-01-02] MEDS: SENNOSIDES-DOCUSATE SODIUM 1 EACH TAB PO SCH (20:40)
[2024-01-02] MEDS: APIXABAN 5 MG TAB PO SCH (20:42)
[2024-01-03 01:43] VITALS: TEMP 98.4
[2024-01-03] MEDS: LEVOTHYROXINE 100 MCG TAB PO SCH (07:00)
--- NOTE | 2024-01-03 07:23 | P.PN ---
Progress Note - Text Progress Note Date: 01/03/24 (710) Anesthesiology Postop day 1 status post total knee arthroplasty with adductor canal catheter. Patient doing well. VAS 0 out of 10. Gross strength intact in lower extremity. Afebrile. Denies alterations in sensorium. Catheter site intact. Heart regular rate Lungs nonlabored Abdomen nondistended Assessment: Postop day 1 status post total knee arthroplasty with adductor canal catheter Plan: 1.All questions answered. Maintain catheter 2 more days with patient removal at home. Instructions to be given at discharge. 2.This note was dictated using Snapguide software. Please be advised there is a potential for misspellings or errors in shrimp cleaner.
[2024-01-03] MEDS: HYDROcodone/APAP 5-325MG 1 EACH TAB PO PRN (07:49)
[2024-01-03 07:56] VITALS: BP 139/75; PULSE 87; RESP 16
[2024-01-03 08:28] LABS: Basophils # (A) 0.01 X 10*3/uL (0.00-0.10); Basophils % (A) 0.1 %; Eosinophils # (A) 0 X 10*3/uL (0.04-0.35); Eosinophils % (A) 0 %; HCT 43.2 % (39.6-50.0); HGB 13.8 g/dL (13.0-17.0); Lymphocytes # (A) 0.92 X 10*3/uL (0.90-5.00); MCH 28.5 pg (27.0-32.0); MCHC 31.9 g/dL (32.0-37.0); MCV 89.1 FL (80.0-97.0); Mean Platelet Volume 11.9 FL (9.5-12.2); Monocytes # (A) 0.89 X 10*3/uL (0.20-1.00); Monocytes % (A) 6.8 %; NRBC Per 100 WBC 0 X 10*3/uL (0.00-0.01); Neutrophils % (A) 85.6 %; Platelet Count 179 X 10*3/uL (140-440); RBC 4.85 X 10*6/uL (4.40-5.60); RDW 13.7 % (11.5-14.5); WBC 13.18 X 10*3/uL (4.50-10.00)
[2024-01-03] MEDS ORDERED: RIVAROXABAN 10 MG TAB PO SCH (09:00)
--- NOTE | 2024-01-03 11:50 | P.DS ---
Providers Date of admission: 01/02/2024 Expected date of discharge: 01/03/24 Attending physician: Anurag Garcia Consults: 01/02/24 14:02 Consult Physician Routine Consulting Provider: Ervin Reagan Consult Reason/Comments: medical management s/p left total knee arthroplasty Do you want consulting provider notified?: Yes Primary care physician: Toribio Olson [facility] Course: Date of admission: 01/02/2024 Date of discharge: 01/03/2024 Admission diagnosis: Left knee osteoarthritis Discharge diagnosis: Same Attending physician: Dr. Garcia Surgical procedures: Left total knee arthroplasty Brief history: Patient is a 73-year-old male with a history of progressive primary left knee osteoarthritis. At this point patient has failed conservative treatment measures and has opted to proceed with a elective left total knee arthroplasty. Hospital course: Details of patient's surgery can be found in operative report. Patient tolerated the procedure well and was subsequently transported to orthopedic floor. Patient's orthopeidc and medical care was provided daily. Patient had daily laboratory tests performed for evaluation of overall blood counts. Patient had daily physical therapy to include strengthening range of motion as well as education with walker ambulation. Patient was treated with Eliquis for their postoperative DVT prophylaxis during their inpatient stay. Patient was noted to have a relatively uneventful postoperative course. Patient reported satisfactory pain control with oral pain medications by postoperative day 1. Patient showed satisfactory progress with physical therapy. Patient moved steadily through the program and had no difficulty meeting the goals by postoperative day 1. Given patient's otherwise satisfactory course and having met physical therapy goals, plan is to discharge patient home with health services on postoperative day 1. Discharge condition/disposition: Patient will be discharged home with health services in stable condition. Discharge medications: Instructions are given on resumption of patient's normal daily medications per primary care recommendation, in addition patient will be prescribed [place]; senna; resume Eliquis at home for DVT prophylaxis. Discharge instructions: 1. Wound care and infection precautions, keep incision dry and covered while showering, no lotions, creams, moisturizers. No soaking, tubs, pools, hottubs. Do not scrub over the incision. 2. Weight-bear as tolerated with walker / cane until follow-up. 3. Ice and elevate when necessary. Do not exceed 20 minutes per hour with ice pack. 4. Utilize compression sleeve until seen at first follow up appointment. 5. Visiting nursing care. 6. Home physical therapy including home CPM. 7. Pain meds and anticoagulants per prescription. 8. Pain medication has potential to cause constipation. Increase oral fluid and fiber intake. Contact primary care provider if you have not had a bowel movement within 48 hours after discharge 9. No anti-inflammatory medication until discussed at first post operative visit, this including Motrin, Aleve, Mobic, Diclofenac. 10. Follow up in office at 2 weeks postop with Clarence Hewitt PA-C / Yobany Pratt PA-C 11. Follow up with your primary care doctor 7-10 days after discharge. 12. Contact [facility] with any questions, . Assessment: Left knee osteoarthritis Procedures: Left total knee arthroplasty Patient Condition at Discharge: Good Plan - Discharge Summary Discharge Rx Participant: Yes New Discharge Prescriptions: New HYDROcodone/APAP 5-325MG [[place] 5-325] 1 - 2 tab PO Q6HR PRN #36 tab PRN Reason: Pain Sennosides/Docusate Sodium [Senna Plus 8.6-50 mg Softgel] 1 each PO DAILY #20 capsule Continue Apixaban [Eliquis] 5 mg PO BID No Action Pramipexole [Mirapex] 0.5 mg PO TID PRN PRN Reason: restless leg Loratadine [Claritin] 10 mg PO DAILY PRN PRN Reason: ALLERGIES SYMPTOMS Acetaminophen Tab [Tylenol] 325 mg PO Q4H PRN PRN Reason: Pain methocarbamoL [Robaxin] 500 mg PO BID PRN 30 Days #60 tab PRN Reason: Muscle Spasm Fluticasone Nasal [place] [Flonase Nasal [place]] 1 spray NASAL DIRECTED PRN PRN Reason: Congestion Levothyroxine Sodium 200 mcg PO DAILY Discharge Medication List Loratadine [Claritin] 10 mg PO DAILY PRN 12/25/19 [History] Pramipexole [Mirapex] 0.5 mg PO TID PRN 12/25/19 [History] Apixaban [Eliquis] 5 mg PO BID 10/08/20 [History] Levothyroxine Sodium 200 mcg PO DAILY 02/17/22 [History] Acetaminophen Tab [Tylenol] 325 mg PO Q4H PRN 07/25/22 [History] methocarbamoL [Robaxin] 500 mg PO BID PRN 30 Days #60 tab 07/19/23 [Rx] Fluticasone Nasal [place] [Flonase Nasal [place]] 1 spray NASAL DIRECTED PRN [History] HYDROcodone/APAP 5-325MG [[place] 5-325] 1 - 2 tab PO Q6HR PRN #36 tab 01/03/24 [Rx] Sennosides/Docusate Sodium [Senna Plus 8.6-50 mg Softgel] 1 each PO DAILY #20 capsule 01/03/24 [Rx] Follow up Appointment(s)/Referral(s): Yobany Pratt, SAMMI [PHYSICIAN SUPERVISOR DOPING] - 2 Weeks [facility],Equipment [NON-STAFF] - As Needed (Continuous Passive Motion knee machine) [facility] [NON-STAFF] - As Needed Patient Instructions/Handouts: Knee Replacement (GEN) Activity/Diet/Wound Care/Special Instructions: Orthopedic Discharge Instructions: 1. Wound care and infection precautions, keep incision dry and covered while showering, no lotions, creams, moisturizers. No soaking, pools, hot tubs. Do not scrub over incision. 2. Weight-bear as tolerated with walker / cane until follow-up. 3. Ice and elevate when necessary. Do not exceed 20 minutes per hour with ice pack. 4. Utilize compression sleeve until seen at first follow up appointment. 5. Pain meds and anticoagulants per prescription. 6. Pain medication has potential to cause constipation. Increase oral fluid and fiber intake. Contact primary care provider if you have not had a bowel movement within 48 hours after discharge. 7. No anti-inflammatory medication until discussed at first post operative visit, this including Motrin, Aleve, Mobic, Diclofenac. 8. Follow up in office at 2 weeks postop with Clarence Hewitt PA-C / Yobany Pratt PA-C 9. Follow up with your primary care doctor 7-10 days after discharge. 10. Contact [facility] with any questions, . Keep incision clean, dry, intact. While showering, cover fusion tape with saran wrap. Keep the tape on until follow-up IN OFFICE IN 2 WEEKS. Discharge Disposition: HOME WITH HOME HEALTH SERVICES
--- NOTE | 2024-01-03 11:52 | P.PN ---
Subjective Progress Note Date: 01/03/24 Principal diagnosis: Left knee osteoarthritis Patient seen at bedside this morning lying semirecumbent position with dressing present over the left knee. With present during counter. Patient says he does have a walker for home. He says he did do well with therapy this morning walked down the [place] and up-and-down stairs. Patient says pain is controlled with oral medication this morning. Patient says he has urinated several times since surgery yesterday without issue. Patient says no bowel movement yet, however, patient says he has been passing gas. Patient denies any other orthopedic complaints at this time. Objective - Vital Signs Vital signs: Vital Signs Temp 98.4 F 01/03/24 07:55 Pulse 87 01/03/24 07:55 Resp 16 01/03/24 07:55 BP 139/75 01/03/24 07:55 Pulse Ox 97 01/03/24 07:55 FiO2 Intake & Output 01/02/24 01/03/24 01/03/24 18:59 06:59 18:59 Intake Total 1850 Output Total 50 300 450 Balance 1800 -300 -450 Weight 99 kg Intake: IV 1850 Output: Urine 300 450 Estimated Blood Loss 50 Other: Voiding Method Urinal # Voids 1 - Exam Left knee: Incision is clean, dry, and intact. The exofin fusion tape is in good condition. There is minimal soft tissue swelling and ecchymosis surrounding the medial and lateral aspects of the incision. Calf is soft, no tenderness with palpation. Plantar flexion, dorsiflexion, EHL, FHL are intact. Sensory exam to light touch throughout the extremity is intact, dorsal pedis pulses 2+. - Labs CBC & Chem 7: 01/03/24 05:27 Labs: Abnormal Lab Results - Last 24 Hours (Table) 01/03/24 Range/Units 05:27 WBC 13.18 H (4.50-10.00) X 10*3/uL MCHC 31.9 L (32.0-37.0) g/dL Immature Gran # 0.06 H (0.00-0.04) X 10*3/uL Neutrophils # 11.30 H (1.80-7.70) X 10*3/uL Eosinophils # 0 L (0.04-0.35) X 10*3/uL Assessment and Plan Assessment: 1. Left knee osteoarthritis - Postop day 1 status post left total knee arthroplasty Plan: 1. Left knee osteoarthritis - left total knee arthroplasty was performed yesterday, 01/02/2024. Patient stable at bedside this morning. Patient does have a walker for home. Patient did do well with therapy this morning. Discharge home today with health services. 2. Appreciate medical management 3. Pain management - [place] 4. DVT prophylaxis - Eliquis 5. GI prophylaxis - senna 6. PT/OT - weightbearing as tolerated with walker 7. Encourage incentive spirometer use 8. Discharge planning - home today with health services. Time with Patient: Less than 30
--- NOTE | 2024-01-03 15:22 | P.PN ---
Subjective Progress Note Date: 01/03/24 Pleasant 73-year-old patient, follows with Dr. Olson. Chronic medical conditions include atrial fibrillation on Eliquis, osteoarthritis, obstructive sleep apnea uses CPAP, hypothyroid, restless leg syndrome, permanent pacemaker. Patient is undergone left total knee arthroplasty. And a dressing. Slight nausea post operative.. Family at the bedside. No chest pain or shortness of breath. Propped up in bed. 01/03/2024 Evaluated today in follow-up resting in bed comfortably. He is complaining of some soreness to his right knee and having some mild lower extremity edema. He is encouraged to ice the knee he did get up with physical therapy today he states that he did well and was able to ambulate in the hallway. He is plan is for discharge home today with home physical therapy. Patient is already anticoagulated with Eliquis for his history of atrial fibrillation and this will continue on discharge. Medically he is stable for discharge home. Review of Systems Constitutional: Denied any fatigue denied any fever. Cardio vascular: denied any chest pain, palpitations Gastrointestinal: denied any nausea, vomiting, diarrhea Pulmonary: Denied any shortness of breath cough Neurologic denied any new focal deficits All inpatient medications were reviewed and appropriate changes in these medications as dictated in the interval history and assessment and plan. PHYSICAL EXAMINATION: GENERAL: The patient is alert and oriented x3, not in any acute distress. Well developed, well nourished. HEENT: Pupils are round and equally reacting to light. EOMI. No scleral icterus. No conjunctival pallor. Normocephalic, atraumatic. No pharyngeal erythema. No thyromegaly. CARDIOVASCULAR: S1 and S2 present. No murmurs, rubs, or gallops. PULMONARY: Chest is clear to auscultation, no wheezing or crackles. ABDOMEN: Soft, nontender, nondistended, normoactive bowel sounds. No palpable organomegaly. MUSCULOSKELETAL: No joint swelling or deformity. EXTREMITIES: No cyanosis, clubbing, or pedal edema. NEUROLOGICAL: Gross neurological examination did not reveal any focal deficits. SKIN: No rashes. Assessment plan: -Left total knee arthroplasty Home dose of Eliquis has been resumed by orthopedic. Did receive IV cefazolin for infection prophylaxis. And 1 dose of Decadron. -Hypothyroid Levothyroxine 200 mcg a day -Restless leg syndrome Mirapex 0.5 mg 3 times daily as needed -Primary osteoarthritis Pain medication as needed -Obstructive sleep apnea Patient uses CPAP from home -Full code Objective - Vital Signs Vital signs: Vital Signs Temp 98.4 F 01/03/24 07:55 Pulse 87 01/03/24 07:55 Resp 16 01/03/24 07:55 BP 139/75 01/03/24 07:55 Pulse Ox 97 01/03/24 07:55 FiO2 Intake & Output 01/02/24 01/03/24 01/03/24 18:59 06:59 18:59 Intake Total 1850 Output Total 50 300 450 Balance 1800 -300 -450 Weight 99 kg Intake: IV 1850 Output: Urine 300 450 Estimated Blood Loss 50 Other: Voiding Method Urinal # Voids 1 - Labs CBC & Chem 7: 01/03/24 05:27 Labs: Abnormal Lab Results - Last 24 Hours (Table) 01/03/24 Range/Units 05:27 WBC 13.18 H (4.50-10.00) X 10*3/uL MCHC 31.9 L (32.0-37.0) g/dL Immature Gran # 0.06 H (0.00-0.04) X 10*3/uL Neutrophils # 11.30 H (1.80-7.70) X 10*3/uL Eosinophils # 0 L (0.04-0.35) X 10*3/uL Assessment and Plan Time with Patient: Less than 30
== END 2024-01-03 13:43 | disposition home health service (06) ==
LOC: OR 10:31 → 4SSUR 15:12 → OR 01-03 13:43
PROVIDERS: ATTEND Orthopaedic Surgery
DX: M17.12 Unilateral primary osteoarthritis, left knee (principal); M21.162 Varus deformity, not elsewhere classified, left knee; G89.18 Other acute postprocedural pain; I48.91 Unspecified atrial fibrillation; I10 Essential (primary) hypertension; E78.00 Pure hypercholesterolemia, unspecified; G47.33 Obstructive sleep apnea (adult) (pediatric); E03.9 Hypothyroidism, unspecified; G25.81 Restless legs syndrome; Z91.89 Other specified personal risk factors, not elsewhere classified; E66.9 Obesity, unspecified; Z68.33 Body mass index [BMI] 33.0-33.9, adult; Z79.01 Long term (current) use of anticoagulants; Z79.890 Hormone replacement therapy; Z79.899 Other long term (current) drug therapy; Z95.0 Presence of cardiac pacemaker; Z88.0 Allergy status to penicillin; Z88.5 Allergy status to narcotic agent; Z88.4 Allergy status to anesthetic agent
CPT/HCPCS: 27447; 97161; 64999; 64448; 85025; 85610; 73560; C1713 ×2; C1776; C1751; J0330; J1100; J2710; J0690 ×3; J2405; J2003; J1171 ×2; J2795; J2704; J2371; J1596

== ENCOUNTER → 2024-01-30 | Outpatient (CLI) | payer MEDICARE ==
[2024-01-30 08:41] VITALS: BP 146/93; PULSE 93; RESP 18; TEMP 97.6
--- NOTE | 2024-01-30 15:20 | P.PAINPG ---
Objective - Vital Signs Vital signs: Intake & Output 01/29/24 01/30/24 01/30/24 18:59 06:59 18:59 Weight 205 kg PQRS Measure Charge Sheet Comment: A 73 yr old male w at side with a history of severe and chronic LBP secondary to post laminectomy syndrome presents today for evaluation. Pain level is provoked at 9 /10 in intensity, constant, localized in the lumbar spine, predominantly axial, burning in character w occasional shooting towards the BLEs. Pain is provoked by climbing stairs. He was able to climb stairs for > 3 mo w ease after last Caudal EDMUNDO w Lysis in Sep 2023. Pain is alleviated with PT x 6 wks w massage in 2021 which was ineffective, physician guided stretches 5 times/ wk since 2021, brisk walks twice weekly x 6 mo, medications, heat, ice, repositioning and rest. Interventional pain procedures completed include Caudal EDMUNDO x6 (w lysis 06/04, 03/07, 07/05, 10/05), BL Lumbar TPIs Patient is currently on Tyl, Ibu, topical Patient denies any side effects of the medication(s), denies excessive drowsiness or sleepiness, denies suicidal ideation and reports that the current pain medication is helping to control the pain and improve activities of daily living. Patient denies any motor or sensory deficits. Patient denies any fever or night sweats, denies any change in the bowel movements or urination. Physical Examination: -Constitutional: Cooperative. Not in acute distress . - Neurologic: Cranial nerve II to XII intact. No focal neurological deficits. - Psychatric: Alert & oriented x 3. Matching mood & appropriate affect. Judgment and insight intact. - Musculoskeletal: Cervical spine: Muscle bulk/ tone/ strength in the bilateral upper extremities normal Vertebral body tenderness to palpation over Spurling test positive Distraction test positive Facet loading test positive TTP Thoracic spine Muscle bulk / tone/ strength in the bilateral paraspinal muscles normal Vertebral body tender to palpation over Facet loading test positive TTP Lumbar spine: Motor bulk/ tone/ strength lower extremities , thigh and legs : 5/5 Deep tendon reflexes : Normal Knee Jerk. Normal Ankle Jerk . Vertebral body tenderness to palpation L5 Frazier test positive BL L5-S1 Lumbar Facet Loading Test positive Straight Leg Raise: positive at 30 degrees right side> left side Gaenslen's Test positive Sacral spine : Severe tenderness over the Sacroiliac joint: right side / left side Range of motion: Flexion of the lumbar spine <60 degrees Range of motion: Extension of the lumbar spine <20 degrees Gaenslen's Test positive right side / left side Alonzo test: positive right side / left side Thigh Thrust Test positive right side / left side Sacral Thrust Test positive right side / left side Assessment and plan: Chronic LBP secondary to post laminectomy syndrome Recommendation of Caudal EDMUNDO w Lysis. Risks, benefits of procedure discussed and pt verbalized understanding. Awaiting updated medical clearance for Eliquis from Dr Guevara. Has ample supply of Tyl #3 #30, Robaxin 500mg #60, Diclofenac gel w 1 RF. Opiate/ narcotic agreement signed 07/19/23. All questions answered. I have spent less than 30 minutes on patient care today. Dr Perez was available by phone for the evaluation of this patient. The time was used to review the medical records including relevant urine studies and Prescription history (MAPs), review of the available imaging, evaluation and examination of the patient, coordination of care with the medical staff and if applicable referring physicians, as well as creation of the medical record PQRS Narrative: Hx Alcohol Use (MH) Yes: SOCIAL Home Medications: Ambulatory Orders Loratadine [Claritin] 10 mg PO DAILY PRN 12/25/19 Pramipexole [Mirapex] 0.5 mg PO TID PRN 12/25/19 Apixaban [Eliquis] 5 mg PO BID 10/08/20 Levothyroxine Sodium 200 mcg PO DAILY 02/17/22 Acetaminophen Tab [Tylenol] 325 mg PO Q4H PRN 07/25/22 methocarbamoL [Robaxin] 500 mg PO BID PRN 30 Days #60 tab 07/19/23 Fluticasone Nasal [place] [Flonase Nasal [place]] 1 spray NASAL DIRECTED PRN 12/27/23 HYDROcodone/APAP 5-325MG [[place] 5-325] 1 - 2 tab PO Q6HR PRN #36 tab 01/03/24 Sennosides/Docusate Sodium [Senna Plus 8.6-50 mg Softgel] 1 each PO DAILY #20 capsule 01/03/24 Controlled Substance Measures - Controlled Substance Measures Is patient prescribed a controlled substance at discharge?: No
== END ==
LOC: PNWHC3 08:20
PROVIDERS: ATTEND Specialist
DX: M96.1 Postlaminectomy syndrome, not elsewhere classified (principal); Z88.0 Allergy status to penicillin; Z88.8 Allergy status to other drugs, medicaments and biological substances
CPT/HCPCS: 99211

== ENCOUNTER 2024-03-06 06:17 | Day surgery (SDC) | payer MEDICARE ==
[2024-03-04 11:52] VITALS: BMI 32.6
[2024-03-06] MEDS ORDERED: LACTATED RINGERS 1,000 ML IV SCH (06:28)
[2024-03-06 06:43] VITALS: RESP 18; TEMP 98.1
[2024-03-06] MEDS ORDERED: IOPAMIDOL M200 10 ML VIAL ONE (07:22)
[2024-03-06] MEDS ORDERED: methylPREDNISolone ACETATE 80 MG/ML 1 ML VIAL ONE (07:22)
--- NOTE | 2024-03-06 07:34 | P.PCN ---
Date of Procedure: 03/06/24 Procedure(s) Performed: PREOP DIAGNOSIS: 1- Lumbar postlaminectomy syndrome.2-lumbar spondylosis with lumbar facet arthropathy without myelopathy POSTOP DIAGNOSIS:1- Lumbar postlaminectomy syndrome.2-lumbar spondylosis with lumbar facet arthropathy without myelopathy PROCEDURE: 1-Caudal epidural steroid injection with epidurolysis and epidurogram under fluoroscopic guidance. (Fluoroscopy images available in the radiology Department 2-caudal epidurogram. ANESTHESIA: Lidocaine 1% 5 mL only. EBL: Minimal. PROCEDURE INDICATION: The patient with post-laminectomy syndrome with low back pain and radiculopathy radiating down in both legs, here for a caudal epidural steroid injection with epidurolysis. PROCEDURE DESCRIPTION: The patient was seen and identified in the preoperative area. Risks, benefits, complications, and alternatives were discussed with the patient. The patient agreed to proceed with the procedure and signed the consent, and vital signs were stable. Patient was taken to the OR and time out was completed. The patient was placed in the prone position on procedure table and a pillow was placed under the abdomen to reduce lumbar lordosis. The lumbosacral area was prepped and draped in the usual sterile fashion. Vital signs were closely monitored during the procedure. lateral view and the anterior-posterior plates of the sacrum were identified with infiltration of the area overlying the sacral hiatus with 1% lidocaine .A 17 gauge RK epidural needle was used to advance through the sacral hiatus into the caudal epidural space. Omnipaque 180 dye. 2cc was injected and the position of the needle was verified to be in the midline. A Racz catheter was introduced into the epidural space and was advanced towards the L5-S1 interspace under direct fluoroscopic guidance. Multiple passes were made with the catheter for lysis of epidural adhesions. Depo-Medrol 60 mg ( preservative-free ) with 3ml of preservative free Lidocaine 1% and 3 ml of preservative free normal saline was injected slowly. Additional spread was seen to L4 under fluoroscopy. The needle and the catheter were withdrawn intact. EPIDUROGRAM: Omnipaque 180 mg dye 2 ml was injected with spread of the dye into the caudal epidural space and with spread cutoff at L5 prior to epidurolysis. Post epidurolysis dye 2 ml was injected and spread was seen to L4-5.There was further spread of the solution together with the dye above the L4 COMPLICATIONS: None. DISPOSITION / PLANS: The patient was placed in a supine position and transferred to the recovery area in a stable condition for observation and was discharged from the recovery room after meeting discharge criteria. Home discharge instructions given to the patient by the staff. The patient was reexamined prior to discharge. The patient will schedule a follow up in the clinic in 2-4 weeks. note= patient held Eliquis for 3 days before the procedure.
--- NOTE | 2024-03-06 07:48 | FL ---
EXAMINATION TYPE: FL guided pain mgmt statistic DATE OF EXAM: 03/06/2024 7:34 AM COMPARISON: Pre Operative Images if available both CT/MRI or plain film CLINICAL INDICATION: Male, 73 years old with history of CDL EPI WITH LYSIS; TECHNIQUE: FL guided pain mgmt statistic, multiple fluoroscopic images provided for procedure. Total fluoroscopy time: 0.5 seconds Total submitted images to PACS: 2 DAP: 0.49563 mGym2 Gycm2 uGym2 cGycm2 or equivalent. FINDINGS: Fluoroscopic images during injection for pain management demonstrate multilevel degeneration changes throughout the spine. No evidence for fracture. No acute process identified. IMPRESSION: 1. No evidence for intraoperative complication. 2. Please see the operative/procedural note for further details. [facility], , 03/06/2024 7:46 AM
[2024-03-06 07:51] VITALS: BP 144/89; PULSE 86
== END 2024-03-06 08:03 | disposition home or self-care (01) ==
LOC: ORPAIN 06:17
PROVIDERS: ATTEND Specialist
DX: M96.1 Postlaminectomy syndrome, not elsewhere classified (principal); M47.26 Other spondylosis with radiculopathy, lumbar region; I48.91 Unspecified atrial fibrillation; Z79.01 Long term (current) use of anticoagulants; Z88.0 Allergy status to penicillin; Z88.4 Allergy status to anesthetic agent; Z88.5 Allergy status to narcotic agent
CPT/HCPCS: 62264; Q9966; J1010

== ENCOUNTER → 2024-06-12 | Outpatient (CLI) | payer MEDICARE ==
[2024-06-12 10:10] VITALS: BP 118/66; PULSE 83; RESP 17; TEMP 96.9
--- NOTE | 2024-06-12 15:23 | P.PAINPG ---
Objective - Vital Signs Vital signs: Vital Signs Temp 96.9 F L 06/12/24 10:06 Pulse 83 06/12/24 10:06 Resp 17 06/12/24 10:06 BP 118/66 06/12/24 10:06 Pulse Ox 96 06/12/24 10:06 FiO2 Intake & Output 06/11/24 06/12/24 06/12/24 18:59 06:59 18:59 Weight 99.79 kg PQRS Measure Charge Sheet Mode of Arrival: Ambulatory Comment: A 74 yr old male w at side with a history of severe and chronic LBP secondary to post laminectomy syndrome presents today for medication refills. Pain level is provoked at 6-8 /10 in intensity, constant, localized in the lumbar spine, predominantly axial, burning in character w occasional shooting towards the BLEs. Pain is provoked by climbing stairs. He was able to climb stairs for > 3 mo w ease after last Caudal EDMUNDO w Lysis in Sep 2023. Pain is alleviated with PT x 6 wks w massage in 2021 which was ineffective, physician guided stretches 5 times/ wk since 2021, brisk walks twice weekly x 6 mo, medications, heat, ice, repositioning and rest. Interventional pain procedures completed include Caudal EDMUNDO x7 (w lysis 06/04, 03/07, 07/05, 10/05, 03/08), BL Lumbar TPIs Patient is currently on Robaxin, Tyl #3, Ibu, topical Patient denies any side effects of the medication(s), denies excessive drowsiness or sleepiness, denies suicidal ideation and reports that the current pain medication is helping to control the pain and improve activities of daily living. Patient denies any motor or sensory deficits. Patient denies any fever or night sweats, denies any change in the bowel movements or urination. Physical Examination: -Constitutional: Cooperative. Not in acute distress . - Neurologic: Cranial nerve II to XII intact. No focal neurological deficits. - Psychatric: Alert & oriented x 3. Matching mood & appropriate affect. Judgment and insight intact. - Musculoskeletal: Cervical spine: Muscle bulk/ tone/ strength in the bilateral upper extremities normal Vertebral body tenderness to palpation over Spurling test positive Distraction test positive Facet loading test positive TTP Thoracic spine Muscle bulk / tone/ strength in the bilateral paraspinal muscles normal Vertebral body tender to palpation over Facet loading test positive TTP Lumbar spine: Motor bulk/ tone/ strength lower extremities , thigh and legs : 5/5 Deep tendon reflexes : Normal Knee Jerk. Normal Ankle Jerk . Vertebral body tenderness to palpation L5 Frazier test positive BL L5-S1 Lumbar Facet Loading Test positive Straight Leg Raise: positive at 30 degrees right side> left side Gaenslen's Test positive Sacral spine : Severe tenderness over the Sacroiliac joint: right side / left side Range of motion: Flexion of the lumbar spine <60 degrees Range of motion: Extension of the lumbar spine <20 degrees Gaenslen's Test positive right side / left side Alonzo test: positive right side / left side Thigh Thrust Test positive right side / left side Sacral Thrust Test positive right side / left side Assessment and plan: Chronic LBP secondary to post laminectomy syndrome Recommendation of medication management. Robaxin 500mg #60 w 2 RF. Opiate/ narcotic agreement for Tylenol #3 #30 signed 07/19/23. All questions answered. I have spent less than 30 minutes on patient care today. Dr Perez was available by phone for the evaluation of this patient. The time was used to review the medical records including relevant urine studies and Prescription history (MAPs), review of the available imaging, evaluation and examination of the patient, coordination of care with the medical staff and if applicable referring physicians, as well as creation of the medical record - Pain Location Back Pharmacological Interventions: PRN Medication PQRS Narrative: Narcotic Agreement Date Signed 01/30/24 Blood Pressure 118/66 Pain Intensity [Back] 10 Scale Used Numeric (1 - 10) Hx Alcohol Use (MH) Yes: SOCIAL Home Medications: Ambulatory Orders Loratadine [Claritin] 10 mg PO DAILY PRN 12/25/19 Pramipexole [Mirapex] 0.5 mg PO TID PRN 12/25/19 Apixaban [Eliquis] 5 mg PO BID 10/08/20 Levothyroxine Sodium 200 mcg PO DAILY 02/17/22 Acetaminophen Tab [Tylenol] 325 mg PO Q4H PRN 07/25/22 Fluticasone Nasal [place] [Flonase Nasal [place]] 1 spray NASAL DIRECTED PRN 12/27/23 HYDROcodone/APAP 5-325MG [[place] 5-325] 1 - 2 tab PO Q6HR PRN #36 tab 01/03/24 Sennosides/Docusate Sodium [Senna Plus 8.6-50 mg Softgel] 1 each PO DAILY #20 capsule 01/03/24 Diclofenac Sodium Gel [Voltaren 1% Gel] 50 gm TOPICAL BID 30 Days #1 each 03/20/24 methocarbamoL [Robaxin] 500 mg PO BID PRN 30 Days #60 tab 06/12/24 Controlled Substance Measures - Controlled Substance Measures Is patient prescribed a controlled substance at discharge?: No
== END ==
LOC: PNWHC3 09:55
PROVIDERS: ATTEND Specialist
DX: M96.1 Postlaminectomy syndrome, not elsewhere classified (principal); G89.29 Other chronic pain; M54.50 Low back pain, unspecified; Z88.0 Allergy status to penicillin; Z88.4 Allergy status to anesthetic agent; Z88.5 Allergy status to narcotic agent; Z88.8 Allergy status to other drugs, medicaments and biological substances
CPT/HCPCS: 99211

== ENCOUNTER 2024-07-24 07:38 | Day surgery (SDC) | payer MEDICARE ==
[2024-07-24 08:08] VITALS: TEMP 97
[2024-07-24] MEDS: LACTATED RINGERS 1,000 ML IV SCH (08:08)
[2024-07-24] MEDS: LIDOCAINE 1% (10MG/ML) FOR IV START INTRADERMA STA (08:09)
[2024-07-24] MEDS: IV FLUID CONTINUATION 1,000 ML IV ONE (08:09)
[2024-07-24] MEDS: CLINDAMYCIN 600 MG in DEXTROSE 5% IN WATER 50 ML IVPB STA (08:40)
[2024-07-24] MEDS ORDERED: methylPREDNISolone ACETATE 80 MG/ML 1 ML VIAL ONE (09:02)
[2024-07-24] MEDS ORDERED: IOPAMIDOL M300 15ML VIAL ONE (09:02)
[2024-07-24] MEDS: IV FLUID CONTINUATION 700 ML IV ONE (09:34)
--- NOTE | 2024-07-24 09:37 | FL ---
EXAMINATION TYPE: FL guided pain mgmt statistic DATE OF EXAM: 07/24/2024 9:32 AM COMPARISON: Pre Operative Images if available both CT/MRI or plain film CLINICAL INDICATION: Male, 74 years old with history of CAUDAL WITH LYSIS; TECHNIQUE: FL guided pain mgmt statistic, multiple fluoroscopic images provided for procedure. DAP: 1.69 mGym2 Gycm2 uGym2 cGycm2 or equivalent. FINDINGS: Fluoroscopic images during internal fixation/arthroplasty demonstrate hardware in appropriate positio n. Hardware appears intact. No immediate complication identified. IMPRESSION: 1. No evidence for intraoperative complication. 2. Please see the operative/procedural note for further details. [facility], , 07/24/2024 9:35 AM
--- NOTE | 2024-07-24 09:41 | P.PCN ---
Description of Procedure: Preprocedure diagnosis. Postlaminectomy syndrome. Lumbar radiculopathy. Postprocedure diagnosis. As above. Procedure done. Injection of radiocontrast material into caudal epidural space. Caudal epidurogram. Lysis of epidural scar with brevi cath catheter. Caudal epidural steroid injection. Anesthesia. Local infiltration anesthesia. Continuous pulse ox, EKG, blood pressure, verbal communication was maintained with the patient in OR Time. Start .End . Blood loss. None. Indication. Discussed the procedure and possible complications which may include infection bleeding nerve damage paralysis and aggravation of pain. Patient understands all questions were answered. Procedure note. IV antibiotic was given preoperative area. After getting consent patient was taken to the OR in prone position. Back prepped with chlorhexidine x 3. After injecting 10 cc of plain 1% lidocaine subcutaneously, a 17-gauge needle with flexible introducer plastic cannula was introduced through the sacral hiatus into the caudal epidural space. 5 cc of Isovue 300 contrast was injected. Contrast was deficient on the bilateral side at L4-5 area. Needle was taken out only keeping the flexible introducer cannula. 19- gauge brevi cath was introduced through the introducer cannula multiple times. Again 3 cc of Isovue-M 300 contrast was injected. Previous deficient contrast area was filled out this time. 3 cc solution was injected through the bravi cath cannula now. Solution consists of 2 cc of preservative-free normal saline mixed with 1 cc of 80 mg Depo-Medrol. Both the catheter and introducer cannula was removed. Disposition. Patient tolerated the procedure well. No complication. Discharged home in stable condition.
[2024-07-24 09:51] VITALS: BP 127/81; PULSE 84; RESP 18
== END 2024-07-24 10:11 | disposition home or self-care (01) ==
LOC: ORPAIN 07:38
PROVIDERS: ATTEND Pain Medicine Interventional Pain Medicine
DX: M96.1 Postlaminectomy syndrome, not elsewhere classified (principal); M54.16 Radiculopathy, lumbar region; G96.12 Meningeal adhesions (cerebral) (spinal); Z88.4 Allergy status to anesthetic agent; Z88.5 Allergy status to narcotic agent; Z88.0 Allergy status to penicillin
CPT/HCPCS: 62264; 62323; Q9967; J0736; J1010

== ENCOUNTER → 2024-08-13 | Outpatient (CLI) | payer MEDICARE ==
[2024-08-13 09:09] VITALS: BP 126/78; PULSE 93; RESP 17; TEMP 97.9
--- NOTE | 2024-08-13 16:10 | P.PAINPG ---
PQRS Measure Charge Sheet Comment: A 74 yr old male w at side with a history of severe and chronic LBP secondary to post laminectomy syndrome presents today for medication refills and evaluation s/p Caudal EDMUNDO w Lysis #1. Pt states he experienced 70-80 % pain relief x 3 wks s/p procedure. Pain level is provoked at 2 /10 in intensity, co nstant, localized in the lumbar spine, predominantly axial, burning in character w occasional shooting towards the BLEs. Pain is provoked by climbing stairs. He was able to climb stairs for > 3 mo w ease after last Caudal EDMUNDO w Lysis in Sep 2023. Pain is alleviated with PT x 6 wks w massage in 2021 which was ineffective, physician guided stretches 5 times/ wk since 2021, brisk walks twice weekly x 6 mo, medications, heat, ice, repositioning and rest. Interventional pain procedures completed include Caudal EDMUNDO x8 (w lysis 06/04, 03/07, 07/05, 10/05, 03/08, 08/06), BL Lumbar TPIs Patient is currently on Robaxin, Tyl #3, Ibu, topical Patient denies any side effects of the medication(s), denies excessive drowsiness or sleepiness, denies suicidal ideation and reports that the current pain medication is helping to control the pain and improve activities of daily living. Patient denies any motor or sensory deficits. Patient denies any fever or night sweats, denies any change in the bowel movements or urination. Physical Examination: -Constitutional: Cooperative. Not in acute distress . - Neurologic: Cranial nerve II to XII intact. No focal neurological deficits. - Psychatric: Alert & oriented x 3. Matching mood & appropriate affect. Judgment and insight intact. - Musculoskeletal: Cervical spine: Muscle bulk/ tone/ strength in the bilateral upper extremities normal Vertebral body tenderness to palpation over Spurling test positive Distraction test positive Facet loading test positive TTP Thoracic spine Muscle bulk / tone/ strength in the bilateral paraspinal muscles normal Vertebral body tender to palpation over Facet loading test positive TTP Lumbar spine: Motor bulk/ tone/ strength lower extremities , thigh and legs : 5/5 Deep tendon reflexes : Normal Knee Jerk. Normal Ankle Jerk . Vertebral body tenderness to palpation L5 Frazier test positive BL L5-S1 Lumbar Facet Loading Test positive Straight Leg Raise: positive at 30 degrees right side> left side Gaenslen's Test positive Sacral spine : Severe tenderness over the Sacroiliac joint: right side / left side Range of motion: Flexion of the lumbar spine <60 degrees Range of motion: Extension of the lumbar spine <20 degrees Gaenslen's Test positive right side / left side Alonzo test: positive right side / left side Thigh Thrust Test positive right side / left side Sacral Thrust Test positive right side / left side Assessment and plan: Chronic LBP secondary to post laminectomy syndrome Will manage residual pain and may RTC on an as needed basis. Methylprednisone dose pack x1. Use, side effects, adverse reactions, safe storage discussed. Ample supply of Robaxin 500mg #60, Tylenol #3 #30 w RF. Opiate/ narcotic agreement signed 07/19/23. All questions answered. I have spent less than 30 minutes on patient care today. Dr Perez was available by phone for the evaluation of this patient. The time was used to review the medical records including relevant urine studies and Prescription history (MAPs), review of the available imaging, evaluation and examination of the patient, coordination of care with the medical staff and if applicable referring physicians, as well as creation of the medical record - Pain Location Lower Back Non-Pharmacological Interventions: Stretching PQRS Narrative: Narcotic Agreement Date Signed 01/30/24 Hx Alcohol Use (MH) Yes: SOCIAL Home Medications: Ambulatory Orders Loratadine [Claritin] 10 mg PO DAILY PRN 12/25/19 Pramipexole [Mirapex] 0.5 mg PO TID PRN 12/25/19 Apixaban [Eliquis] 5 mg PO BID 10/08/20 Levothyroxine Sodium 200 mcg PO DAILY 02/17/22 Acetaminophen Tab [Tylenol] 325 mg PO Q4H PRN 07/25/22 Fluticasone Nasal [place] [Flonase Nasal [place]] 1 spray NASAL DIRECTED PRN 12/27/23 methocarbamoL [Robaxin] 500 mg PO BID PRN 30 Days #60 tab 06/12/24 Diclofenac Sodium Gel [Voltaren 1% Gel] 50 gm TOPICAL BID PRN 07/23/24 methylPREDNISolone Dose Pack [Medrol Dose Pack] 4 mg PO DIRECTED 6 Days #21 tab 08/13/24 Controlled Substance Measures - Controlled Substance Measures Is patient prescribed a controlled substance at discharge?: No
== END ==
LOC: PNWHC3 08:23
PROVIDERS: ATTEND Specialist
DX: M54.50 Low back pain, unspecified (principal); G89.29 Other chronic pain; M96.1 Postlaminectomy syndrome, not elsewhere classified; Z88.0 Allergy status to penicillin; Z88.4 Allergy status to anesthetic agent; Z88.6 Allergy status to analgesic agent; Z88.5 Allergy status to narcotic agent
CPT/HCPCS: 99211